=== PATIENT | male | born 1930 | race Caucasian/White ===

== ENCOUNTER 2018-01-16 10:22 | Inpatient (IN) | payer OTHER, BC, MEDICARE ==
[~2018-01-16] VITALS: Ht 185.4 cm; Wt 96.7 kg
[~2018-01-16 10:22] MED LIST: ALLOPURINOL300 M1 PO; AMLODIPINE BESYL5 M1 PO; ASPIRIN81 M4 PO; ATORVASTATIN CA40 M1 PO; AUGMENTIN 500-1 EACH PO; AUGMENTIN 875-1 EACH PO; BACTRIM DS TAB1 EACH PO; CLOPIDOGREL75 M1 PO; COLACE100 M1 PO; FIBER CHOICE1.5 GM PO; FISH OIL 1,0001 EACH PO; FOLIC ACID0.4 M1 PO; HYDROCHLOROTH12.5 M3 PO; KEFLEX500 M1 PO; LEVOTHYROXINE100 MC1 PO; LISINOPRIL5 M1 PO; METOPROLOL SUCC50 M2 PO; NITROGLYCERIN1 EACH TOP; PEPCID20 M1 PO; PRESERVISION A1 EACH PO; PROMETHAZINE HC25 M3 PO; PROTONIX20 M1 PO; RAMIPRIL10 M1 PO; RANITIDINE HCL75 MG PO; TAMSULOSIN HCL0.4 M1 PO; VITAMIN B-121000 MC3 PO; VITAMIN D32000 UNI1 PO
--- NOTE | 2018-01-16 10:35 | ED MVC/FALL/TRAUMA COMPLAINT ---
History of Present Illness General Chief Complaint: Fall Stated Complaint: S/P BIBA FRO TRIP AND FALL HEAD INJURY Source: patient Exam Limitations: no limitations Allergies Coded Allergies: No Known Allergies (06/11/16) Reconcile Medications Allopurinol 300 MG TABLET 0.5 TAB PO DAILY UNKNOWN (Reported) Amlodipine Besylate 2.5 MG TABLET 1 TAB PO DAILY HEART (Reported) Aspirin (Aspirin*) 81 MG TAB.CHEW 2 TAB PO DAILY HEART HEALTH (Reported) Atorvastatin Calcium 40 MG TABLET 1 TAB PO DAILY CHOLESTEROL (Reported) Cholecalciferol (Vitamin D3) (Vitamin D3) 2,000 UNIT TABLET 1 TAB PO DAILY VITAMIN SUPPORT (Reported) Clopidogrel Bisulfate (Clopidogrel) 75 MG TABLET 1 TAB PO DAILY BLOOD THINNER (Reported) Cyanocobalamin (Vitamin B-12) 1,000 MCG TABLET 1 TAB PO DAILY SUPPLEMENT ( Reported) Folic Acid 0.4 MG TABLET 1 TAB PO DAILY VITAMIN SUPPORT (Reported) Levothyroxine Sodium 100 MCG TABLET 1 TAB PO DAILY AC THYROID (Reported) Metoprolol Succinate 50 MG TAB.ER.24H 1 TAB PO BID HEART (Reported) Nitroglycerin (Nitroglycerin Patch) 0.4 MG/HOUR PATCH.TD24 1 PAT TOP DAILY HEART (Reported) Promethazine HCl 25 MG TABLET 1 TAB PO DAILY NAUSEA (Reported) Ranitidine HCl 75 MG TABLET 1 TAB PO DAILY GI (Reported) Tamsulosin HCl 0.4 MG CAP.ER.24H 1 CAP PO DAILY PROSTATE (Reported) Vit A/Vit C/Vit E/Zinc/Copper (Preservision Areds Tablet) 7,160-113 TABLET 1 TAB PO BID EYE (Reported) Triage Nurses Notes Reviewed? yes Onset: Abrupt Duration: minute(s):, constant, continues in ED Severity: moderate, severe Injuries/Fall Location: lower extremity Loss of Consciousness: no loss of consciousness HPI: 87-year-old male comes into the emergency room for further evaluation after falling at home. Patient reports that he was outside talking with his knees hurt and tripped with his dog came down on his right hip and hit his head. Denies any neck pain. Denies any rib pain or pain to his upper arms or hands. Pain to his right hip. (Sammy Angelo) Vital Signs & Intake/Output Vital Signs & Intake/Output Vital Signs Date Time Temp Pulse Resp B/P B/P Pulse O2 O2 Flow FiO2 Mean Ox Delivery Rate 01/16 1235 97.8 70 174/82 96 Room Air Room Air 01/16 1031 96.2 88 18 204/96 94 Room Air (Sherine SINGH,Abdi David) Past History Travel History Traveled to [place] past 21 day No Medical History Any Pertinent Medical History? 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 No (Sammy Angelo) Review of Systems Review of Systems Constitutional: Reports: no symptoms. Eyes: Reports: no symptoms. Ears, Nose, Throat, Mouth: Reports: no symptoms. Respiratory: Reports: no symptoms. Cardiovascular: Reports: no symptoms. Gastrointestinal/Abdominal: Reports: no symptoms. Genitourinary: Reports: no symptoms. Musculoskeletal: Reports: see HPI. Skin: Reports: no symptoms. Neurological/Psychological: Reports: see HPI. All Other Systems: Reviewed and Negative (Sammy Angelo) Physical Exam Physical Exam General Appearance: well developed/nourished, alert, awake, mild distress Head: swelling (RIGHT SCALP) Eyes: Bilateral: normal appearance, EOMI. Ears, Nose, Throat, Mouth: hearing grossly normal, moist mucous membrane Neck: normal inspection Respiratory: normal breath sounds, no respiratory distress Gastrointestinal: soft Back: normal inspection Extremities: full range of motion of right hip, Neurologic/Psych: awake, alert, oriented x 3 Skin: intact Core Measures ACS in differential dx? No CVA/TIA Diagnosis No Sepsis Present: No Sepsis Focused Exam Completed? No (Sammy Angelo) Progress Differential Diagnosis: abd injury, C/T/L spine injury, ext injury, ICH, pelvis injury, pnemothorax, spinal cord injury Diagnostic Imaging: Viewed by Me: CT Scan. Discussed w/RAD: CT Scan. Radiology Impression: PATIENT: MEET VAIL PRESENT AGE: 87 PATIENT ACCOUNT NO: [id number] : [birth year] LOCATION: ER ORDERING PHYSICIAN: Sammy GLYNN SERVICE DATE: 01/16/18 EXAM TYPE : CAT - CT PELVIS WO IV CONTRAST EXAMINATION: CT PELVIS WITHOUT CONTRAST CLINICAL INFORMATION: Sacral pain status post fall. Evaluate for sacral fracture. COMPARISON: CT abdomen and pelvis 07/20/2017. TECHNIQUE: Helical scanning was performed with submillimeter collimation through the pelvis. Sagittal and coronal multiplanar 2-D reconstructions were obtained. DLP: 935.53 mGy-cm FINDINGS: There are acute minimally displaced fractures of the right superior and inferior pubic rami. There is also a transversely oriented fracture involving the right ilium. The sacrum is intact and the left hemipelvis is intact. Findings are consistent with a type II lateral compression fracture based on the Young-Adams classification of pelvic fractures. There is mild soft tissue swelling associated with the iliac fractures. No overt retroperitoneal hematoma is visualized within the [id number] of this examination. A few diverticula are visualized within the descending colon and sigmoid. Chronic changes of an appendectomy. The visualized colon and small bowel are otherwise unremarkable. No layering fluid is visualized within the peritoneal cavity. The urinary bladder and prostate gland are unremarkable. IMPRESSION: Acute right-sided type II lateral compression fracture of the pelvis based on the Young-Adams classification of pelvic fracture. Mild associated soft tissue swelling surrounding the pubic rami fractures. No overt retroperitoneal hematoma. DICTATED BY: Chalino Salomon MD DATE/TIME DICTATED: 01/16/181234 PRODUCTION WELDING SUPERVISOR:VINI DATE/TIME TRANSCRIBED:01/16/181234 CONFIDENTIAL, DO NOT COPY WITHOUT APPROPRIATE AUTHORIZATION. <Electronically signed in Other Vendor System> SIGNED BY: Chalino Salomon MD 01/16/18 1247, PATIENT: MEET VAIL PRESENT AGE: 87 PATIENT ACCOUNT NO: [id number] : [birth year] LOCATION: ER ORDERING PHYSICIAN: Sammy GLYNN SERVICE DATE: 01/16/18 EXAM TYPE: CAT - CT HEAD WO IV CONTRAST EXAMINATION: CT HEAD WITHOUT CONTRAST CLINICAL INFORMATION: Fall. Hit head. On Plavix. COMPARISON: CT head 03/10/2008. TECHNIQUE: Contiguous axial imaging was performed from the skull base to vertex without intravenous administration of contrast. DLP: 622.39 mGy-cm FINDINGS: There is no acute intracranial hemorrhage or abnormal extra-axial collection. No intracranial mass effect or midline shift. Lateral and third ventricles are proportionate to the subarachnoid spaces. No hydrocephalus. Ill-defined foci of hypoattenuation are visualized within the periventricular white matter and there are a few small chronic lacunar infarcts for instance within the left caudate head. Grossly no evidence of acute territorial infarct. There is focal swelling of the right parietal scalp near the vertex. The calvarium and skull base are intact. Mastoid air cells and middle ear cavities are well-aerated. Visualized paranasal sinuses are well-aerated. IMPRESSION: Focal swelling of the right parietal scalp near the vertex. No evidence of acute intracranial hemorrhage. DICTATED BY: Chalino Salomon MD DATE/TIME DICTATED:01/16/181118 PRODUCTION WELDING SUPERVISOR:VINI DATE /TIME TRANSCRIBED:01/16/181118 CONFIDENTIAL, DO NOT COPY WITHOUT APPROPRIATE AUTHORIZATION. <Electronically signed in Other Vendor System> SIGNED BY: Chalino Salomon MD 01/16/18 1125 (Sammy Angelo) Plan of Care: Orders Procedure Date/time Status Heart Healthy Diet 01/16 D Active Saline Lock 01/16 1454 Active Pathway - chart 01/16 1454 Active House Staff 01/16 1454 Active Patient Data 01/16 1454 Active Vital Signs 01/16 1454 Active Code Status 01/16 1454 Active TYPE & SCREEN (NOT X-MATCH) 01/16 1454 Active Patient Data 01/16 1447 Active Misc Message 01/16 1445 Active ED Holding Orders 01/16 1445 Active Admit to inpatient 01/16 1445 Active Vital Signs 01/16 1445 Active Code Status 01/16 1445 Complete COMPREHENSIVE METABOLIC PANEL 01/16 1433 Complete CBC WITHOUT DIFFERENTIAL 01/16 1433 Complete EKG 01/16 1433 Active Intake & Output 01/16 1353 Active VTE Mechanical Prophylaxis 01/16 UNK Active Laboratory Tests 01/16/18 1504: Anion Gap 10, Estimated GFR 21 L, BUN/Creatinine Ratio 13.4, Glucose 99, Calcium 8.6, Total Bilirubin 0.7, AST 22, ALT 39, Alkaline Phosphatase 83, Total Protein 6.0 L, Albumin 3.3 L, Globulin 2.7, Albumin/Globulin Ratio 1.2, CBC w Diff NO MAN DIFF REQ, RBC 3.34 L, MCV 95.7 H, MCH 32.6 H, MCHC 34.1, RDW 14.2 , MPV 7.4, Gran % 79.8 H, Lymphocytes % 10.2 L, Monocytes % 7.4, Eosinophils % 2.2, Basophils % 0.4, Absolute Granulocytes 8.3 H, Absolute Lymphocytes 1.1 L, Absolute Monocytes 0.8 H, Absolute Eosinophils 0.2, Absolute Basophils 0 (Sherine SINGH,Abdi David) Departure Departure Disposition: STILL A PATIENT Condition: Stable Clinical Impression Primary Impression: Pelvic fracture Referrals: Stef Avila MD (PCP/Family) Departure Forms: Customer Survey General Discharge Information Admission Note Spoke With: Denton Torres MD Documentation of Exam: Documentation of any treatments & extenuating circumstances including Concerns Regarding Discharge (functional status, medication knowledge or non-compliance, living conditions, etc.) that warrant an admission rather than observation: Pain control. Physical therapy. Patient is not safe for discharge because he is unable to ambulate. Significant amount of pain. She will require physical therapy. Short-term rehabilitation. Orthopedic consultation. (Sammy Angelo) PA/TRANSPORTATION WORKER Co-Sign Statement Statement: ED Attending supervision documentation- [x] I saw and evaluated the patient. I have also reviewed all the pertinent lab results and diagnostic results. I agree with the findings and the plan of care as documented in the PA's/TRANSPORTATION WORKER's documentation. Patient presents for evaluation of injury sustained status post fall. Physical examination reveals pain and tenderness with range of motion of the right lower extremity (right lower extremity is neurovascularly intact). [] I have reviewed the ED Record and agree with the PA's/TRANSPORTATION WORKER's documentation. [] Additions or exceptions (if any) to the PAs/TRANSPORTATION WORKER's note and plan are summarized below: [] (Sherine SINGH,Abdi David) Critical Care Note Critical Care Note Critical Care Time: 30-74 min (35) (Sammy Angelo)
[2018-01-16] MEDS ORDERED: AMLODIPINE BES2.5 M1 PO (10:59)
--- NOTE | 2018-01-16 11:25 | CT SCAN REPORT ---
EXAMINATION: CT HEAD WITHOUT CONTRAST CLINICAL INFORMATION: Fall. Hit head. On Plavix. COMPARISON: CT head 03/10/2008. TECHNIQUE: Contiguous axial imaging was performed from the skull base to vertex without intravenous administration of contrast. DLP: 622.39 mGy-cm FINDINGS: There is no acute intracranial hemorrhage or abnormal extra-axial collection. No intracranial mass effect or midline shift. Lateral and third ventricles are proportionate to the subarachnoid spaces. No hydrocephalus. Ill-defined foci of hypoattenuation are visualized within the periventricular white matter and there are a few small chronic lacunar infarcts for instance within the left caudate head. Grossly no evidence of acute territorial infarct. There is focal swelling of the right parietal scalp near the vertex. The calvarium and skull base are intact. Mastoid air cells and middle ear cavities are well-aerated. Visualized paranasal sinuses are well-aerated. IMPRESSION: Focal swelling of the right parietal scalp near the vertex. No evidence of acute intracranial hemorrhage.
--- NOTE | 2018-01-16 11:56 | RADIOLOGY REPORT ---
EXAMINATION: CR PELVIS CR RIGHT HIP CR RIGHT HAND CLINICAL INFORMATION: Fall. Right hip and hand pain. COMPARISON: Pelvis film dated 02/13/2014. TECHNIQUE: AP view of the pelvis. 2 views of the right hip. 3 views of the right hand. FINDINGS: PELVIS AND RIGHT HIP: Evaluation of the pelvis is limited since the pubic rami are not included on the [id number]. The right pubic rami are included on the right hip films. There is a nondisplaced hairline fracture of the right iliac crest. In addition, there may be subtle nondisplaced fracture of the right superior and inferior pubic rami, possibly subacute given indistinctness of the fracture margins. There is some irregularity of the mid and lower sacrum seen bilaterally in region of the sacroiliac joints, findings may be related to prominent hypertrophic changes at the joints though subtle insufficiency fractures of the sacrum cannot be excluded. The mid and lower sacrum are otherwise obscured by overlying stool filled loops of bowel. The right hip joint is normally located within the acetabulum. No hip fracture is seen. Mild degenerative changes noted with superior joint space narrowing and acetabular roof sclerosis and spurring and cystic changes. Arteriovascular calcifications is seen in the groin. Several calcified nodular densities are seen in the pelvis, unchanged from prior studies, likely phleboliths. A staple is partially included in the left upper paraspinal location. Prominent vertebral endplate spurring is seen in the included lower lumbar spine. RIGHT HAND: There is diffuse osteopenia. No acute fracture or dislocation is seen. There is moderate degenerative change seen with joint space narrowing, spurring, cystic changes involving all the interphalangeal joints and the first carpometacarpal joint and the first and second metacarpophalangeal joints. Associated mild soft tissue swelling in all digits is noted at the PIP joint level. No joint calcifications are seen. IMPRESSION: 1. Diffuse osteopenia. This limits assessment. 2. Nondisplaced hairline fracture of the right iliac crest. 3. Right superior and inferior pubic rami fractures, possibly subacute given indistinctness of the fracture margins. Irregularities of the sacrum seen paralleling the sacroiliac joints, possibly related to degenerative change. However, subtle insufficiency fractures cannot be excluded. Further assessment with CT scan of the pelvis is recommended. 4. No acute fracture of the right hand. 5. Moderate degenerative changes throughout the right hand as discussed above.
--- NOTE | 2018-01-16 12:47 | CT SCAN REPORT ---
EXAMINATION: CT PELVIS WITHOUT CONTRAST CLINICAL INFORMATION: Sacral pain status post fall. Evaluate for sacral fracture. COMPARISON: CT abdomen and pelvis 07/20/2017. TECHNIQUE: Helical scanning was performed with submillimeter collimation through the pelvis. Sagittal and coronal multiplanar 2-D reconstructions were obtained. DLP: 935.53 mGy-cm FINDINGS: There are acute minimally displaced fractures of the right superior and inferior pubic rami. There is also a transversely oriented fracture involving the right ilium. The sacrum is intact and the left hemipelvis is intact. Findings are consistent with a type II lateral compression fracture based on the Young-Adams classification of pelvic fractures. There is mild soft tissue swelling associated with the iliac fractures. No overt retroperitoneal hematoma is visualized within the [id number] of this examination. A few diverticula are visualized within the descending colon and sigmoid. Chronic changes of an appendectomy. The visualized colon and small bowel are otherwise unremarkable. No layering fluid is visualized within the peritoneal cavity. The urinary bladder and prostate gland are unremarkable. IMPRESSION: Acute right-sided type II lateral compression fracture of the pelvis based on the Young-Adams classification of pelvic fracture. Mild associated soft tissue swelling surrounding the pubic rami fractures. No overt retroperitoneal hematoma.
--- NOTE | 2018-01-16 14:56 | History & Physical ---
Raymundo Parmar MD 01/16/18 5686: General Information and HPI MD Statement: I have seen and personally examined MEET VAIL and documented this H&P. The patient is a 87 year old M who presented with a patient stated chief complaint of fall. Source of Information: patient, old records Exam Limitations: no limitations History of Present Illness: 87 year old male with past medical history significant for hypertension, hyperlipidemia, severe aortic stenosis, b/l CEA, abdominal aortic aneurysm repair, hypothyroidism, BPH, GERD, and CKD stage IV presents after a mechanical fall. The patient was in his usual state of health and walking his dog outside when he turned to say goodbye to his nephew and the dog tried to run and tugged on the leash which he lost his balance and fell on his right side. He hit the right side of his head on a hitched trailer without loss of consciousness. The patient's life alert activated and EMS brought him to the hospital. The patient was unable to stand up due to right hip and leg pain. He was lifted off the ground to a seated position on the trailer. He also complains of some right hand pain and abrasions related to the fall. He denied any other symptoms, including exertional chest pain, dyspea, palpitations, syncope, or nausea. He was recently seen by Dr. Damico in the office for hypertension and aortic stenosis and was recently start on amlodipine 2.5mg po. His blood pressure had been approaching 200 systolic and had reportedly improved to 160-180. The patient monitors his blood pressure at home. In the ED, imaging revealed right superior and inferior pubic rami fractures and soft tissues injuries to the right parietal head and right hand. The patient's blood pressure was elevated to 200 and he was treated with 10mg of oral oxycodone. The patient was neurovascularly intact, but does report numbness and tingling in the right lower extremity. He was admitted to general medicine for management of right pelvic fractures. Allergies/Medications Allergies: Coded Allergies: No Known Allergies (06/11/16) Home Med list Allopurinol 300 MG TABLET 0.5 TAB PO DAILY UNKNOWN (Reported) Amlodipine Besylate 2.5 MG TABLET 1 TAB PO DAILY HEART (Reported) Aspirin (Aspirin*) 81 MG TAB.CHEW 2 TAB PO DAILY HEART HEALTH (Reported) Atorvastatin Calcium 40 MG TABLET 1 TAB PO DAILY CHOLESTEROL (Reported) Cholecalciferol (Vitamin D3) (Vitamin D3) 2,000 UNIT TABLET 1 TAB PO DAILY VITAMIN SUPPORT (Reported) Clopidogrel Bisulfate (Clopidogrel) 75 MG TABLET 1 TAB PO DAILY BLOOD THINNER (Reported) Cyanocobalamin (Vitamin B-12) 1,000 MCG TABLET 1 TAB PO DAILY SUPPLEMENT ( Reported) Folic Acid 0.4 MG TABLET 1 TAB PO DAILY VITAMIN SUPPORT (Reported) Levothyroxine Sodium 100 MCG TABLET 1 TAB PO DAILY AC THYROID (Reported) Metoprolol Succinate 50 MG TAB.ER.24H 1 TAB PO BID HEART (Reported) Nitroglycerin (Nitroglycerin Patch) 0.4 MG/HOUR PATCH.TD24 1 PAT TOP DAILY HEART (Reported) Promethazine HCl 25 MG TABLET 1 TAB PO DAILY NAUSEA (Reported) Ranitidine HCl 75 MG TABLET 1 TAB PO DAILY GI (Reported) Tamsulosin HCl 0.4 MG CAP.ER.24H 1 CAP PO DAILY PROSTATE (Reported) Vit A/Vit C/Vit E/Zinc/Copper (Preservision Areds Tablet) 7,160-113 TABLET 1 TAB PO BID EYE (Reported) Compliance With Home Meds: GOOD Past History Travel History Traveled to [place] past 21 day No Medical History Neurological: TIA EENT: hearing loss Cardiovascular: aortic aneurysm, hypertension, hyperlipidemia Respiratory: NONE Gastrointestinal: ACID REFLUX Hepatic: NONE Renal: benign prost hyperplasia, nephrolithiasis, RENAL INSUFFICIENCY Musculoskeletal: disk herniation Psychiatric: NONE Endocrine: hypothyroidism Blood Disorders: NONE Cancer(s): NONE 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 spouse Services at Home: None Primary Language: Mongolian Functional Ability ADLs Independent: dressing, eating, toileting, bathing. Ambulation: independent IADLs Independent: shopping, housework, finances, food prep, telephone, transportation , medication admin. Review of Systems Review of Systems Constitutional: Denies: chills, fever, malaise. EENTM: Denies: double vision, visual changes. Cardiovascular: Reports: peripheral edema. Denies: chest pain, orthopena, palpitations, syncope. Respiratory: Denies: cough, short of breath, sputum production. GI: Denies: abdominal pain, bloating, constipation, diarrhea, nausea, vomiting. Genitourinary: Denies: dysuria, frequency. Musculoskeletal: Reports: back pain, joint pain. Skin: Reports: see HPI. Neurological/Psychological: Reports: paresthesia, tingling. Denies: headache, weakness. Hematologic/Endocrine: Reports: no symptoms. Immunologic/Allergic: Reports: no symptoms. All Other Systems: Reviewed and Negative Exam & Diagnostic Data Last 24 Hrs of Vital Signs/I&O Vital Signs Date Time Temp Pulse Resp B/P B/P Pulse O2 O2 Flow FiO2 Mean Ox Delivery Rate 01/16 1235 97.8 70 174/82 96 Room Air Room Air 01/16 1031 96.2 88 18 204/96 94 Room Air Physical Exam General Appearance Alert, Oriented X3, Cooperative, No Acute Distress HEENT hematoma right parietal head Cardiovascular Regular Rate, Normal S1, Normal S2, 3/6 systolic murmur loudest at LSB Lungs Clear to Auscultation, Normal Air Movement Abdomen Normal Bowel Sounds, Soft, No Tenderness, No Masses Extremities No Clubbing, No Cyanosis, Normal Pulses, good peripheral pulses but ROM limited by pain, sensation intact, mild bilateral lower extremity edema, abrasions to the right hand and elbow Last 24 Hrs of Labs/Stephon: Laboratory Tests 01/16/18 1504: Anion Gap 10, Estimated GFR 21 L, BUN/Creatinine Ratio 13.4, Glucose 99, Calcium 8.6, Total Bilirubin 0.7, AST 22, ALT 39, Alkaline Phosphatase 83, Troponin I 0.02, Total Protein 6.0 L, Albumin 3.3 L, Globulin 2.7, Albumin/ Globulin Ratio 1.2, TSH 1.940, Free T4 1.37, CBC w Diff NO MAN DIFF REQ, RBC 3.34 L, MCV 95.7 H, MCH 32.6 H, MCHC 34.1, RDW 14.2, MPV 7.4, Gran % 79.8 H, Lymphocytes % 10.2 L, Monocytes % 7.4, Eosinophils % 2.2, Basophils % 0.4, Absolute Granulocytes 8.3 H, Absolute Lymphocytes 1.1 L, Absolute Monocytes 0.8 H, Absolute Eosinophils 0.2, Absolute Basophils 0 Diagnostic Data EKG Results sinus rhythm, LVH, minimal ST depressions V5-V6 Other Results Head CT w/o IV contrast There is no acute intracranial hemorrhage or abnormal extra-axial collection. No intracranial mass effect or midline shift. Lateral and third ventricles are proportionate to the subarachnoid spaces. No hydrocephalus. Ill-defined foci of hypoattenuation are visualized within the periventricular white matter and there are a few small chronic lacunar infarcts for instance within the left caudate head. Grossly no evidence of acute territorial infarct. There is focal swelling of the right parietal scalp near the vertex. The calvarium and skull base are intact. Mastoid air cells and middle ear cavities are well-aerated. Visualized paranasal sinuses are well-aerated. IMPRESSION: Focal swelling of the right parietal scalp near the vertex. No evidence of acute intracranial hemorrhage. Right hand and hip x-rays RIGHT HAND: There is diffuse osteopenia. No acute fracture or dislocation is seen. There is moderate degenerative change seen with joint space narrowing, spurring, cystic changes involving all the interphalangeal joints and the first carpometacarpal joint and the first and second metacarpophalangeal joints. Associated mild soft tissue swelling in all digits is noted at the PIP joint level. No joint calcifications are seen. IMPRESSION: 1. Diffuse osteopenia. This limits assessment. 2. Nondisplaced hairline fracture of the right iliac crest. 3. Right superior and inferior pubic rami fractures, possibly subacute given indistinctness of the fracture margins. Irregularities of the sacrum seen paralleling the sacroiliac joints, possibly related to degenerative change. However, subtle insufficiency fractures cannot be excluded. Further assessment with CT scan of the pelvis is recommended. 4. No acute fracture of the right hand. 5. Moderate degenerative changes throughout the right hand as discussed above. Pelvic CT There are acute minimally displaced fractures of the right superior and inferior pubic rami. There is also a transversely oriented fracture involving the right ilium. The sacrum is intact and the left hemipelvis is intact. Findings are consistent with a type II lateral compression fracture based on the Young-Adams classification of pelvic fractures. There is mild soft tissue swelling associated with the iliac fractures. No overt retroperitoneal hematoma is visualized within the [id number] of this examination. A few diverticula are visualized within the descending colon and sigmoid. Chronic changes of an appendectomy. The visualized colon and small bowel are otherwise unremarkable. No layering fluid is visualized within the peritoneal cavity. The urinary bladder and prostate gland are unremarkable. IMPRESSION: Acute right-sided type II lateral compression fracture of the pelvis based on the Young-Adams classification of pelvic fracture. Mild associated soft tissue swelling surrounding the pubic rami fractures. No overt retroperitoneal hematoma. Assessment/Plan Assessment: 87 year old male with past medical history significant for hypertension, hyperlipidemia, severa aortic stenosis, abdominal aortic aneurysm repair, hypothyroidism, BPH, GERD, and CKD stage IV presents after a mechanical fall with right sided pelvic fractures. Pelvic fractures: Secondary to mechanical fall, no suspicion for arrhythmia, not from syncope Pelvic CT There are acute minimally displaced fractures of the right superior and inferior pubic rami. There is also a transversely oriented fracture involving the right ilium. The sacrum is intact and the left hemipelvis is intact. Findings are consistent with a type II lateral compression fracture based on the Young-Adams classification of pelvic fractures. There is mild soft tissue swelling associated with the iliac fractures. No overt retroperitoneal hematoma is visualized within the [id number] of this examination. Type and screen, check CBC Analgesia-tylenol 1g IV q6h prn mild, moderate oxycodone 5mg, severe oxycodone 10mg Avoid NSAIDS because of CKD Orthopedics consultation with Dr. Kerr Conservative management with partial weight bearing PT evaluation after adequate analgesia Will likely require short term rehabilitation Hypertension, probable CAD, b/l CEA: Patient has significant hypertension BP ~200/90 Some of this may be pain related, but patient was also recently started on norvasc 2.5mg Continue norvasc 2.5, consider increasing to 5mg if no improvement with pain relief Some lateral ST depressions in v5-v6 and LVH, check repeat EKG and troponin x [address] Damico Obtain recent echocardiogram or repeat if none available, 3/6 murmur on physical exam Pt likely has CAD, given h/o AAA repair, b/l CEA, was scheduled for outpatient stress test Continue aspirin, plavix, metoprolol, atorvastatin, and nitropatch 0.4 Severe aortic stenosis: Avoid hypotension Echo 10/2017 severe ANDERS 0.8 mean gradient 43, mild LA dilatation, LVEF wnl, mild LVH Can increase norvasc to 5mg as needed Was previously on HCTZ/ACEi, stopped for orthostatic hypotension on prior admission Cardiology consulted CKD Stage IV: Stable, avoid nephrotoxic agents GERD: Continue ranitidine or PO PPI BPH: Continue flomax Hypothyroidism: Continue synthroid 100mcg daily Check TSHR History of nephrolithiasis: Continue allopurinol 150mg Continue home vitamin supplements, preservision not available Regular diet with 2g sodium restriction DVT ppx-mechanical ALPs today Given fracture and hematoma, plan to start sc heparin tomorrow if CBC stable and no bleeding DNR/DNI As Ranked By This Provider Problem List: 1. Pelvic fracture 2. Fall Core Measures/Misc (04/15) Acute Coronary Syndrome ACS Diagnosis: No Congestive Heart Failure Congestive Heart Failure Diagnosis No Cerebrovascular Accident CVA/TIA Diagnosis: No VTE (View Protocol) VTE Risk Factors Age>40 No Mechanical VTE Prophylaxis d/t N/A MechProphylax Ordered No VTE Pharm Prophylaxis d/t Medical Contraindication (bleeding risk on asa/ plavix) Comment: new fracture/hematoma Sepsis (View protocol) Sepsis Present: No If YES complete Sepsis Event Note If YES complete Sepsis Event Note Alejo Elias 01/16/18 1459: Core Measures/Misc (04/15) Sepsis (View protocol) If YES complete Sepsis Event Note If YES complete Sepsis Event Note Resident Review Statement Resident Statement: examined this patient, discussed with process engineering intern, agreed with process engineering intern Other Findings: This is a 87-year-old male with past medical history of hypertension, peripheral vascular disease, TIA status post with bilateral carotid endarterectomy, abdominal aortic aneurysm status post repair, nephrolithiasis on allopurinol, hyperlipidemia, hypercholesterolemia, BPH, chronic renal failure CKD stage IV, hypothyroidism on levothyroxine, came in was brought in by ambulance after a mechanical fall and hitting his head. Apparently the patient was doing all right when he was walking his dog outside and the dog took a different course, he tried to catch him when he lost his balance and fell on his right side, hitting his head on the trailer. He did not have any dizziness lightheadedness on any loss of consciousness, palpitations or any prodromal symptoms prior to the fall. He did not have any confusion after the fall and apparently this was purely a mechanical fall. His life alert activated and that is how he was brought into emergency department. He also had some abrasions on the right side of the hand. He also endorses a history of high blood pressure in the last 1 month prior to presentation. His blood pressure was approaching 200/100 after [address] he [address] Dr[address] Damico at its office, he was started on Norvasc 2.5 mg, however at home his measurements have been more close to 165 systolic in the last few days. His vitals on presentation were temperature of 97.8, pulse of 70, blood pressure of 204/96 on presentation, he was saturating 94% on room air. Physical exam he was alert oriented 3, not in any acute distress, however on moving his right side of the hip hurt. HEENT PERRLA, normocephalic, hematoma present on the right parietal area, approximately 1 cm in diameter. CVS S1-S2 present, pansystolic murmur grade 4 out of 6. RS air entry bilaterally equal, no adventitious sounds. Poor abdomen soft, nontender. Bilateral extremity, pulses palpable, no edema. Hip joint : Right hip joint tender on palpation, painful on moving, no bruising found, able to wiggle the toes of bilateral legs, however was not able to lift up the right hip due to pain, sensation mildly reduced bilaterally secondary to neuropathy. Hand x-ray, hip x-ray, pelvis x-ray and pelvis CT showed diffuse osteopenia, nondisplaced hairline fracture of the right iliac crest, right inferior and superior pubic rami fracture with irregularities of sacrum seen paralleling the sacroiliac joints and extensive degenerative disease, no acute fracture of the right hand, moderate degenerative changes throughout the right hand present. EKG showed NSR, Some lateral ST depressions in v5-v6 and LVH Cardiology consultation with Dr. Damico. Echo 10/2017 severe ANDERS 0.8 mean gradient 43, mild LA dilatation, LVEF wnl, mild LVH We will admit the patient to general medicine floor for treatment of hip fracture status post mechanical fall. Problem list along with assessment and plan problem #1 hip fracture -right superior and inferior pubic rami fractures with nondisplaced hairline fracture of the right iliac crest. superior and inferior pubic rami fractures will most likely be treated conservatively, continue pain management with IV Tylenol for mild to moderate pain and Percocet for severe pain. Continue fall precautions, ortho consult, PT/OT consult, partial weightbearing as per ortho, crossmatching type crossmatch and type, will likely require steroid replacement. #2 Moderate aortic stenosis. Follows up with Dr. Damico on the outpatient, as per history recent echocardiogram showed a valve area of 0.8 cm, cardio consult with Dr. Damico. #3 hypertension. Patient came in with blood pressure of 200-100, continue metoprolol and Norvasc 2.5 mg for high blood pressure, cardiac consult with Dr. Damico, if the blood pressure continues to be on the higher side, consider giving an additional 2.5 mg Norvasc one time. The high blood pressure seems to be most likely secondary to the pain however if it stays consistently high will need to adjust the medication upon discharge. #3 hyperlipidemia. Continue statin. #4 hypothyroidism. Continue levothyroxine 100 mcg daily, repeat TSH and T4. #5 BPH. Continue tamsulosin 0.4 mg daily. #6 history of carotid endarterectomy. Continue aspirin and Plavix at 81 and 75 mg respectively. #7. Nephrolithiasis. ct allopurinol 150 mg daily. #8 CKD-4 stable Avoid nehprotoxin Continue home medications of folic acid, vitamin B12 Full code. DVT prophylaxis with Alps. Heart healthy diet. Pain management with IV Tylenol and p.o. Percocet. Jojo SINGH,Krystal 01/16/18 1633: Core Measures/Misc (04/15) Sepsis (View protocol) If YES complete Sepsis Event Note If YES complete Sepsis Event Note Attending MD Review Statement Attending Statement Attending MD Statement: examined this patient, discuss w/resident/PA/ACCOUNT MANAGER RELIEF, agreed w/resident/PA/ACCOUNT MANAGER RELIEF, reviewed EMR data (avail), discussed with nursing, discussed with case mgmt, amended to note Attending Assessment/Plan: Patient is a pleasant 87yo male with hx of Aortic Stenosis, PAD, CKD Stage IV, HTN who presents to the emergency room folowing a mechanical fall. He is found to have ccute right-sided type II lateral compression fracture of the pelvis. He is conplaining of hip pain with movement and is having diffficulty ambulating. Examination findings are pertinent for small subutaneous hematoma on the right side of the vertex, and a 3/6 systolic murmur. There is no brusing over the right hip and distal pulses are palpable. His ROM of both hip are limited secondary to pain. Labs show chroinically elevated Cr at baseline. His is slightly more anemic compared to baseline. EKG was reported as atrial fluter but there are discernable p waves. There is non-specific lateral ST depressions. Patient denies any chest pain, palpitations at rest or with exertion. Plan. - Admit to the in-pt medical service - Pain manamnet with oxycodeone as needed. - Orthopedic evaluation for weight bearing status. PT consultation. - Repeat EKG. Cardiology consutation. - Continue amlodipine and metoprolol for blood pressure control. - DVT prophylaxis with compresion. May utilize Heparin if H/H remains stable. - Continue ASA/Plavix for now for his PAD.
[2018-01-16 15:16] LABS: ABSOLUTE BASOPHIL COUNT 0 /CUMM (0.0-0.2); ABSOLUTE EOSINOPHIL COUNT 0.2 /CUMM (0.0-0.7); ABSOLUTE GRANULOCYTE CT 8.3 /CUMM (1.4-6.5); ABSOLUTE LYMPH COUNT 1.1 /CUMM (1.2-3.4); ABSOLUTE MONOCYTE COUNT 0.8 /CUMM (0.10-0.60); BASOPHIL % 0.4 % (0.0-2.0); EOSINOPHIL % 2.2 % (0-5); GRANULOCYTE % 79.8 % (42.2-75.2); MEAN CORPUSCULAR HGB 32.6 PG (27.0-31.0); MEAN CORPUSCULAR HGB CONC 34.1 G/DL (33.0-37.0); MEAN CORPUSCULAR VOLUME 95.7 FL (80.0-94.0); MEAN PLATELET VOLUME 7.4 FL (7.4-10.4); PLATELET COUNT 114 /CUMM (130-400); RBC DISTRIBUTION WIDTH 14.2 % (11.5-14.5); RED BLOOD CELL CT 3.34 /CUMM (4.70-6.10); WHITE BLOOD CELL COUNT 10.4 /CUMM (4.8-10.8)
--- NOTE | 2018-01-16 16:32 | Admission Certification ---
Admission Certification Certification Statement - As attending physician, I certify that at the time of - admission, based on clinical presentation, severity of - symptoms, need for further diagnostic testing and - therapeutic interventions, and risk of adverse outcomes - without in-hospital treatment, in my clinical assessment, - this patient requires an acute hospital stay for a minimum - of two nights or longer. I have also considered psychsocial - factors such as support system, advanced age, financial - issues, cognitive issues, and failed out-patient treatments, - past re-admission history, safety of patient, and lack of - compliance as applicable. Specific rationale supporting this admission is: Hospitalization is required for pain control and physical therapy evaluation.
--- NOTE | 2018-01-16 16:55 | PN- Student ---
Subjective Subjective: Student H&P Source: Patient (nominal reliability) HPI: Samm was in his usual state of health until today when he fell from ground level. He was walking his dog and got pulled by the leash when the dog ran after something. He hit his head on a trailer and landed on his right side. He denied any prodromal symptoms such as dizziness, light-headedness, chest pain, SOB, or palpitations. He denied any loss of consciousness, and was able to pick himself up to a sitting position on the trailer. His life-alert was activated and he was transported to the ER by ambulance. He endorses pain where he hit his head, pain in his right hand, and pain in his right hip. He describes bilateral numbness in his legs up to mid-calf level which has been present for years. His medical history includes hypertension, and three weeks ago he was prescribed amlodipine. Home monitoring has shown an improvement in systolic pressures from the low 200' s to between 160-180 systolic. PMH: HTN, HLD, severe aortic stenosis, TIA, hypothyroidism, BPH, GERD, CKD stage 4, nephrolithiasis, macular degeneration (left) PSH: bilateral carotid endarterectomy, AAA repair, herniated disk repair, appendectomy Home Meds: Allopurinol Amlodipine Aspirin Atorvastatin Clopidogrel Levothyroxine Metoprolol Nitroglycerin Promethazine Ranitidine Tamsulosin Vit A/Vit C/Vit E/Zinc/Copper (Preservision Areds Tablet) Allergies: NKDA ROS: GENERAL: Denies fevers/chills, nightsweats, or weight changes. Endorses feeling cold all the time HEENT: Denies headaches or changes in vision. Endorses difficulty swallowing solids and sinus pressure CHEST: Denies palpitations. Endorses chest tightness and shortness of breath on exersion ABDOMEN: Denies pain, nausea/vomitting, or changes in bowel habits. Endorses acid reflux. UROLOGY: Denies pain/burning, blood, or urgency. Endorses incomplete emptying. MSK: Endorses numbness per HPI, stiffness in right hand, and severe pain and swelling in left thumb 2 months ago. FMH: Father - Alcoholism Mother - Liver cancer Brother - last year (unknown, neurological?) SH: Lives alone, visits his in [facility] 4 days per week. Drinks 1 beer per week. Denies tobacco use. Denies illicit drug use. Objective Objective: On physical exam, the patient is resting comfotably in NAD. He is alert and oriented and speaking in full sentances. His skin is PWD. Cardiovascular: Heart has a regular rate with a grade IV/ holosystolic murmur heard best at the left sternal border 4th intercostal space. No lifts, heaves, or thrills; PMI not palpable. Radial pulses are equal and bounding. Pedal pulses are equal bilaterally. There is trace pedal edema. No JVD. Pulmonary: Lungs are clear to auscultation bilaterally. Neurological: Cranial nerves 2-12 are intact. Upper extremity strength is 4/5 on the right and 5/5 on the left. Biceps reflex is 1+ on the right and 2+ on the left. Flexion and extension of the foot and halus is 5/5 bilaterally. Unable to assess other muscle groups due to pain. Sensation is intact except numbness from his feet to his midcalf. Extremities: Multiple small wounds and swelling on right hand. Hematoma on top right scalp. No bruising or deformity on the right hip. EKG Results sinus rhythm, LVH, minimal ST depressions V5-V6 Other Results Head CT w/o IV contrast IMPRESSION: Focal swelling of the right parietal scalp near the vertex. No evidence of acute intracranial hemorrhage. Right hand and hip x-rays IMPRESSION: 1. Diffuse osteopenia. This limits assessment. 2. Nondisplaced hairline fracture of the right iliac crest. 3. Right superior and inferior pubic rami fractures, possibly subacute given indistinctness of the fracture margins. Irregularities of the sacrum seen paralleling the sacroiliac joints, possibly related to degenerative change. However, subtle insufficiency fractures cannot be excluded. Further assessment with CT scan of the pelvis is recommended. 4. No acute fracture of the right hand. 5. Moderate degenerative changes throughout the right hand as discussed above. Pelvic CT IMPRESSION: Acute right-sided type II lateral compression fracture of the pelvis based on the Young-Adams classification of pelvic fracture. Mild associated soft tissue swelling surrounding the pubic rami fractures. No overt retroperitoneal hematoma. Laboratory Tests 01/16 1504 Chemistry Sodium (137 - 145 mmol/L) 142 Potassium (3.5 - 5.1 mmol/L) 4.2 Chloride (98 - 107 mmol/L) 110 H Carbon Dioxide (22 - 30 mmol/L) 22 Anion Gap (5 - 16) 10 BUN (9 - 20 mg/dL) 39 H Creatinine (0.7 - 1.2 mg/dL) 2.9 H Estimated GFR (>60 ml/min) 21 L BUN/Creatinine Ratio (7 - 25 %) 13.4 Glucose (65 - 99 mg/dL) 99 Calcium (8.4 - 10.2 mg/dL) 8.6 Total Bilirubin (0.2 - 1.3 mg/dL) 0.7 AST (17 - 59 U/L) 22 ALT (21 - 72 U/L) 39 Alkaline Phosphatase (< 127 U/L) 83 Troponin I (<0.11 ng/ml) 0.02 Total Protein (6.3 - 8.2 g/dL) 6.0 L Albumin (3.5 - 5.0 g/dL) 3.3 L Globulin (1.9 - 4.2 gm/dL) 2.7 Albumin/Globulin Ratio (1.1 - 2.2 %) 1.2 TSH (0.270 - 4.200 uIU/mL) 1.940 Free T4 (0.85 - 1.93 ng/dL) 1.37 Hematology CBC w Diff NO MAN DIFF REQ WBC (4.8 - 10.8 /CUMM) 10.4 RBC (4.70 - 6.10 /CUMM) 3.34 L Hgb (14.0 - 18.0 G/DL) 10.9 L Hct (42 - 52 %) 32.0 L MCV (80.0 - 94.0 FL) 95.7 H MCH (27.0 - 31.0 PG) 32.6 H MCHC (33.0 - 37.0 G/DL) 34.1 RDW (11.5 - 14.5 %) 14.2 Plt Count (130 - 400 /CUMM) 114 L MPV (7.4 - 10.4 FL) 7.4 Gran % (42.2 - 75.2 %) 79.8 H Lymphocytes % (20.5 - 51.1 %) 10.2 L Monocytes % (1.7 - 9.3 %) 7.4 Eosinophils % (0 - 5 %) 2.2 Basophils % (0.0 - 2.0 %) 0.4 Absolute Granulocytes (1.4 - 6.5 /CUMM) 8.3 H Absolute Lymphocytes (1.2 - 3.4 /CUMM) 1.1 L Absolute Monocytes (0.10 - 0.60 /CUMM) 0.8 H Absolute Eosinophils (0.0 - 0.7 /CUMM) 0.2 Absolute Basophils (0.0 - 0.2 /CUMM) 0 Vital Signs Date Time Temp Pulse Resp B/P B/P Pulse O2 O2 Flow FiO2 Mean Ox Delivery Rate 01/16 1645 98.1 72 18 181/84 96 Room Air 01/16 1235 97.8 70 174/82 96 Room Air Room Air 01/16 1031 96.2 88 18 204/96 94 Room Air Assessment/Plan Assessment: 87 YOM with a PMH of HTN, HLD, severe aortic stenosis, AAA repair, hypothyroidism, BPH, GERD, and CKD stage IV presents after a mechanical fall with right sided pelvic fractures. Problem 1: non-displaced hip fractures; hemodynamically stable patient. - Pain control with Oxycodone and Tylenol, avoid NSAIDS - Partial weight bearing - PT evaluation - Orthopedics consult Problem 2: Hypertensive urgency - Continue Norvasc and Lopressor - Ensure adequate analgesia - If pressure remains elevated, consider increasing amlodipine dose and - Investigate secondary HTN causes Problem 3: Heart murmur, exertional chest pain/dyspnea, non-specific EKG changes - Cardiology consult - Serial troponins and EKGs - Review recent cardiology records - Continue ASA/Plavix Otherwise continue home meds DVT prophylaxis - ALPs only until hemostasis in ensured. Diet: Full
--- NOTE | 2018-01-16 17:05 | Cons- Cardiology ---
General Information and HPI Consulting Request Date of Consult: 01/16/18 Requested By: Krystal Uribe MD Reason for Consult: mechanical fall; abnormal ECG Source of Information: patient, old records Exam Limitations: no limitations History of Present Illness: The patient is an 87 year old male, well known to me, with past medical history significant for hypertension, hyperlipidemia, severe aortic stenosis, b/l CEA, abdominal aortic aneurysm repair, hypothyroidism, BPH, GERD, and CKD stage IV presents after a mechanical fall. The patient was in his usual state of health and walking his dog outside when he turned to say goodbye to his nephew and the dog tried to run and tugged on the leash which he lost his balance and fell on his right side. He hit the right side of his head on a hitched trailer without loss of consciousness. The patient's life alert activated and EMS brought him to the hospital. The patient was unable to stand up due to right hip and leg pain. He was recently seen by me in the office for hypertension and aortic stenosis and was recently start on amlodipine 2.5mg po. In the past, the patient's BP meds had been held due to worsening positional hypotension. The patient denies any other CV symptoms at the present time. Allergies/Medications Allergies: Coded Allergies: No Known Allergies (06/11/16) Home Med List: Allopurinol 300 MG TABLET 0.5 TAB PO DAILY UNKNOWN (Reported) Amlodipine Besylate 2.5 MG TABLET 1 TAB PO DAILY HEART (Reported) Aspirin (Aspirin*) 81 MG TAB.CHEW 2 TAB PO DAILY HEART HEALTH (Reported) Atorvastatin Calcium 40 MG TABLET 1 TAB PO DAILY CHOLESTEROL (Reported) Cholecalciferol (Vitamin D3) (Vitamin D3) 2,000 UNIT TABLET 1 TAB PO DAILY VITAMIN SUPPORT (Reported) Clopidogrel Bisulfate (Clopidogrel) 75 MG TABLET 1 TAB PO DAILY BLOOD THINNER (Reported) Cyanocobalamin (Vitamin B-12) 1,000 MCG TABLET 1 TAB PO DAILY SUPPLEMENT ( Reported) Folic Acid 0.4 MG TABLET 1 TAB PO DAILY VITAMIN SUPPORT (Reported) Levothyroxine Sodium 100 MCG TABLET 1 TAB PO DAILY AC THYROID (Reported) Metoprolol Succinate 50 MG TAB.ER.24H 1 TAB PO BID HEART (Reported) Nitroglycerin (Nitroglycerin Patch) 0.4 MG/HOUR PATCH.TD24 1 PAT TOP DAILY HEART (Reported) Promethazine HCl 25 MG TABLET 1 TAB PO DAILY NAUSEA (Reported) Ranitidine HCl 75 MG TABLET 1 TAB PO DAILY GI (Reported) Tamsulosin HCl 0.4 MG CAP.ER.24H 1 CAP PO DAILY PROSTATE (Reported) Vit A/Vit C/Vit E/Zinc/Copper (Preservision Areds Tablet) 7,160-113 TABLET 1 TAB PO BID EYE (Reported) Current Medications: Current Medications Sig/Wilfredo Start time Last Medication Dose Route Stop Time Status Admin Acetaminophen 1,000 MG Q6P PRN 01/16 1600 UNVr N/A 1 UNIT IV Allopurinol 150 MG DAILY 01/17 09 UNVr PO Amlodipine Besylate 2.5 MG DAILY 01/16 1610 UNVr PO Aspirin 162 MG DAILY 01/17 09 UNVr PO Atorvastatin Calcium 40 MG 1700 01/17 1700 AC PO Cholecalciferol 2,000 IU ONCE ONE 01/16 1615 DC PO 01/16 1616 Clopidogrel Bisulfate 75 MG DAILY 01/17 09 AC PO Cyanocobalamin 1,000 MCG DAILY 01/17 0900 AC PO Famotidine 75 MG DAILY AC 01/17 0700 UNVr PO Folic Acid 0.4 MG DAILY 01/17 09 UNVr PO Levothyroxine Sodium 0.1 MG DAILY AC 01/17 0700 AC PO Metoprolol Succinate 50 MG BID 01/16 2100 AC PO Nitroglycerin 0.4 MG DAILY 01/17 0900 AC TOP Oxycodone HCl 10 MG ONCE ONE 01/16 1500 DC 01/16 PO 01/16 1501 1517 Oxycodone HCl 0 .STK-MED ONE 01/16 1459 DC PO Oxycodone/ 1 TAB Q6P PRN 01/16 1600 AC Acetaminophen PO Promethazine HCl 25 MG DAILY 01/17 0900 AC PO 01/24 0859 Tamsulosin HCl 0.4 MG DAILY 01/17 0900 AC PO Past History Travel History Traveled to [place] past 21 day No Medical History Neurological: TIA EENT: hearing loss Cardiovascular: aortic aneurysm, hypertension, hyperlipidemia Respiratory: NONE Gastrointestinal: ACID REFLUX Hepatic: NONE Renal: benign prost hyperplasia, nephrolithiasis, RENAL INSUFFICIENCY Musculoskeletal: disk herniation Psychiatric: NONE Endocrine: hypothyroidism Blood Disorders: NONE Cancer(s): 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 spouse Services at Home: None Primary Language: Uzbek Functional Ability ADLs Independent: dressing, eating, toileting, bathing. Ambulation: independent IADLs Independent: shopping, housework, finances, food prep, telephone, transportation , medication admin. Exam & Diagnostic Data Vital Signs and I&O Vital Signs Date Time Temp Pulse Resp B/P B/P Pulse O2 O2 Flow FiO2 Mean Ox Delivery Rate 01/16 1645 98.1 72 18 181/84 96 Room Air 01/16 1235 97.8 70 174/82 96 Room Air Room Air 01/16 1031 96.2 88 18 204/96 94 Room Air Physical Exam: General Appearance Alert, Oriented X3, Cooperative, No Acute Distress HEENT hematoma right parietal head Cardiovascular Regular Rate, Normal S1, Normal S2, 3/6 systolic murmur loudest at LSB Lungs Clear to Auscultation, Normal Air Movement Abdomen Normal Bowel Sounds, Soft, No Tenderness, No Masses Extremities No Clubbing, No Cyanosis, Normal Pulses, good peripheral pulses but ROM limited by pain, sensation intact, mild bilateral lower extremity edema, abrasions to the right hand and elbow Labs/Stephon Results: Laboratory Tests 01/16 1504 Chemistry Sodium (137 - 145 mmol/L) 142 Potassium (3.5 - 5.1 mmol/L) 4.2 Chloride (98 - 107 mmol/L) 110 H Carbon Dioxide (22 - 30 mmol/L) 22 Anion Gap (5 - 16) 10 BUN (9 - 20 mg/dL) 39 H Creatinine (0.7 - 1.2 mg/dL) 2.9 H Estimated GFR (>60 ml/min) 21 L BUN/Creatinine Ratio (7 - 25 %) 13.4 Glucose (65 - 99 mg/dL) 99 Calcium (8.4 - 10.2 mg/dL) 8.6 Total Bilirubin (0.2 - 1.3 mg/dL) 0.7 AST (17 - 59 U/L) 22 ALT (21 - 72 U/L) 39 Alkaline Phosphatase (< 127 U/L) 83 Troponin I (<0.11 ng/ml) 0.02 Total Protein (6.3 - 8.2 g/dL) 6.0 L Albumin (3.5 - 5.0 g/dL) 3.3 L Globulin (1.9 - 4.2 gm/dL) 2.7 Albumin/Globulin Ratio (1.1 - 2.2 %) 1.2 TSH (0.270 - 4.200 uIU/mL) Pending Free T4 (0.85 - 1.93 ng/dL) Pending Hematology CBC w Diff NO MAN DIFF REQ WBC (4.8 - 10.8 /CUMM) 10.4 RBC (4.70 - 6.10 /CUMM) 3.34 L Hgb (14.0 - 18.0 G/DL) 10.9 L Hct (42 - 52 %) 32.0 L MCV (80.0 - 94.0 FL) 95.7 H MCH (27.0 - 31.0 PG) 32.6 H MCHC (33.0 - 37.0 G/DL) 34.1 RDW (11.5 - 14.5 %) 14.2 Plt Count (130 - 400 /CUMM) 114 L MPV (7.4 - 10.4 FL) 7.4 Gran % (42.2 - 75.2 %) 79.8 H Lymphocytes % (20.5 - 51.1 %) 10.2 L Monocytes % (1.7 - 9.3 %) 7.4 Eosinophils % (0 - 5 %) 2.2 Basophils % (0.0 - 2.0 %) 0.4 Absolute Granulocytes (1.4 - 6.5 /CUMM) 8.3 H Absolute Lymphocytes (1.2 - 3.4 /CUMM) 1.1 L Absolute Monocytes (0.10 - 0.60 /CUMM) 0.8 H Absolute Eosinophils (0.0 - 0.7 /CUMM) 0.2 Absolute Basophils (0.0 - 0.2 /CUMM) 0 Diagnostic Data EKG Results NSR; LVH; non specific STT changes Other Results Pelvic CT: IMPRESSION: Acute right-sided type II lateral compression fracture of the pelvis based on the Young-Adams classification of pelvic fracture. Mild associated soft tissue swelling surrounding the pubic rami fractures. No overt retroperitoneal hematoma. Assessment/Plan Assessment/Plan Assessment: 1. Pelvic / Pubic ramus fracture post mechanical fall. 2. Moderate aortic stenosis. 3. Abnormal ECG 4. History of PAD with 70% left SFA stenosis 5. Mild bilateral carotid plaque status post bilateral CEA 6. History of AAA repair with residual small AAA 7. History of CAD Recommendations: -Continue current management as per the medical team -IF BP remains elevated, consider increasing amlodipine to 5 cantrell with close monitoring of orthostatic BPs if possible. - NO need for any other cardiac testing at the present time Consult Acknowledgment - Thank you for your consult request.
[2018-01-16 18:00] VITALS: BP 154/70
[2018-01-16 22:10] VITALS: BP 140/80
[2018-01-17 06:00] VITALS: BP 160/66
[2018-01-17 08:30] LABS: ABSOLUTE BASOPHIL COUNT 0 /CUMM (0.0-0.2); ABSOLUTE EOSINOPHIL COUNT 0.2 /CUMM (0.0-0.7); ABSOLUTE LYMPH COUNT 0.9 /CUMM (1.2-3.4); BASOPHIL % 0.6 % (0.0-2.0); EOSINOPHIL % 2.6 % (0-5); GRANULOCYTE % 73.9 % (42.2-75.2); HEMATOCRIT 30.4 % (42-52); MEAN CORPUSCULAR HGB 33.4 PG (27.0-31.0); MEAN CORPUSCULAR VOLUME 98.2 FL (80.0-94.0); RBC DISTRIBUTION WIDTH 13.9 % (11.5-14.5); RED BLOOD CELL CT 3.09 /CUMM (4.70-6.10); WHITE BLOOD CELL COUNT 8.1 /CUMM (4.8-10.8)
--- NOTE | 2018-01-17 08:39 | PN- Housestaff ---
See Addendum Subjective Follow-up For: fall pelvic fractures right hand injury Subjective: patient states his right hand hurts worse than his hip this morning no overnight events received another 2.5mg of amlodipine overnight for HTN Review of Systems Constitutional: Reports: see HPI. Objective Last 24 Hrs of Vital Signs/I&O Vital Signs Date Time Temp Pulse Resp B/P B/P Pulse O2 O2 Flow FiO2 Mean Ox Delivery Rate 01/17 0600 98.6 65 20 160/66 93 Room Air 01/17 0000 Room Air 01/16 2210 98.0 62 20 140/80 95 Room Air 01/16 2104 62 140/80 01/16 1800 97.6 68 18 154/70 94 01/16 1645 98.1 72 18 181/84 96 Room Air 01/16 1235 97.8 70 174/82 96 Room Air Room Air Intake & Output 01/17 1600 01/17 0800 01/17 0000 Intake Total 240 300 Output Total 200 580 Balance 40 -280 Intake, Oral 240 300 Number 0 Bowel Movements Output, Urine 200 580 Patient 93.497 kg 90.718 kg Weight Weight Bed scale Reported by Patient Measurement Method Physical Exam General Appearance: Alert, Oriented X3, Cooperative, No Acute Distress HEENT: right parietal hematoma Cardiovascular: Regular Rate, Normal S1, Normal S2, 3/6 systolic murmur Lungs: Clear to Auscultation, Normal Air Movement Abdomen: Normal Bowel Sounds, Soft, No Tenderness, No Masses Extremities: b/l LE ROM limited by pain, right hand and thumb swelling worsened with limited ROM Current Medications: Current Medications Sig/Wilfredo Start time Last Medication Dose Route Stop Time Status Admin Acetaminophen 1,000 MG Q6P PRN 01/16 1600 AC N/A 1 UNIT IV 01/17 1559 Allopurinol 150 MG DAILY 01/17 0900 AC 01/17 PO 1138 Amlodipine Besylate 2.5 MG DAILY 01/16 1610 AC 01/17 PO 0953 Aspirin 162 MG DAILY 01/17 0900 AC 01/17 PO 1137 Atorvastatin Calcium 40 MG 1700 01/17 1700 AC PO Cholecalciferol 2,000 IU ONCE ONE 01/16 1615 DC 01/16 PO 01/16 1616 2131 Clopidogrel Bisulfate 75 MG DAILY 01/17 09 AC 01/17 PO 0953 Cyanocobalamin 1,000 MCG DAILY 01/17 0900 AC 01/17 PO 1137 Famotidine 20 MG DAILY AC 01/17 0700 AC 01/17 PO 0632 Folic Acid 1 MG DAILY 01/17 0900 AC 01/17 PO 0954 Levothyroxine Sodium 0.1 MG DAILY AC 01/17 0700 AC 01/17 PO 0632 Metoprolol Succinate 50 MG BID 01/16 2100 AC 01/17 PO 0953 Nitroglycerin 0.4 MG DAILY 01/17 09 AC 01/17 TOP 0956 Non-Formulary 0 SEE ADMIN CRITERIA 01/17 1030 CAN Medication ANY Oxycodone HCl 10 MG ONCE ONE 01/16 1500 DC 01/16 PO 01/16 1501 1517 Oxycodone HCl 0 .STK-MED ONE 01/16 1459 DC PO Oxycodone/ 1 TAB Q6P PRN 01/16 1600 AC 01/17 Acetaminophen PO 0152 Promethazine HCl 25 MG DAILY 01/17 09 AC 01/17 PO 01/24 0859 1137 Tamsulosin HCl 0.4 MG DAILY 01/17 09 AC 01/17 PO 0953 Last 24 Hrs of Lab/Stephon Results Last 24 Hrs of Labs/Mics: Laboratory Tests 01/17/18 0708: Anion Gap 11, Estimated GFR 21 L, BUN/Creatinine Ratio 13.8, Magnesium 1.8, Troponin I 0.02, CBC w Diff NO MAN DIFF REQ, RBC 3.09 L, MCV 98.2 H, MCH 33.4 H, MCHC 34.0, RDW 13.9, MPV 8.0, Gran % 73.9, Lymphocytes % 10.8 L, Monocytes % 12.1 H, Eosinophils % 2.6, Basophils % 0.6, Absolute Granulocytes 6.0, Absolute Lymphocytes 0.9 L, Absolute Monocytes 1.0 H, Absolute Eosinophils 0.2, Absolute Basophils 0 01/16/18 1504: Anion Gap 10, Estimated GFR 21 L, BUN/Creatinine Ratio 13.4, Glucose 99, Calcium 8.6, Total Bilirubin 0.7, AST 22, ALT 39, Alkaline Phosphatase 83, Troponin I 0.02, Total Protein 6.0 L, Albumin 3.3 L, Globulin 2.7, Albumin/ Globulin Ratio 1.2, TSH 1.940, Free T4 1.37, CBC w Diff NO MAN DIFF REQ, RBC 3.34 L, MCV 95.7 H, MCH 32.6 H, MCHC 34.1, RDW 14.2, MPV 7.4, Gran % 79.8 H, Lymphocytes % 10.2 L, Monocytes % 7.4, Eosinophils % 2.2, Basophils % 0.4, Absolute Granulocytes 8.3 H, Absolute Lymphocytes 1.1 L, Absolute Monocytes 0.8 H, Absolute Eosinophils 0.2, Absolute Basophils 0 Microbiology 01/17 0356 URINE ROUT: Urine Culture - COLB Assessment/Plan Assessment: 87 year old male with past medical history significant for hypertension, hyperlipidemia, severa aortic stenosis, abdominal aortic aneurysm repair, hypothyroidism, BPH, GERD, and CKD stage IV presents after a mechanical fall with right sided pelvic fractures. Pelvic fractures: Analgesia-tylenol 1g IV q6h prn mild, moderate oxycodone 5mg, severe oxycodone 10mg Avoid NSAIDS because of CKD Orthopedics consultation with Dr. Kerr Weight bearing as tolerating Physical therapy Will likely require short term rehabilitation Right wrist [id number] for cortical avulsion radial aspect trapezium Discuss with orthopedics, the need for splinting and immobilization Hypertension: Continue norvasc 2.5, can increased to 5mg if needed Cardiology consultation with Dr. Damico Continue aspirin, plavix, metoprolol, atorvastatin, and nitropatch 0.4 Severe aortic stenosis: Avoid hypotension Echo 10/2017 severe ANDERS 0.8 mean gradient 43, mild LA dilatation, LVEF wnl, mild LVH Was previously on HCTZ/ACEi, stopped for orthostatic hypotension on prior admission CKD Stage IV: Stable, avoid nephrotoxic agents GERD: Continue ranitidine or PO PPI BPH: Continue flomax Hypothyroidism: Continue synthroid 100mcg daily History of nephrolithiasis: Continue allopurinol 150mg Regular diet with 2g sodium restriction DVT ppx-mechanical ALPs today DNR/DNI Problem List: 1. Fall 2. Pelvic fracture Pain Ratin Pain Location: right hand and hip Pain Goal: Pain 4 or less Pain Plan: prn Tomorrow's Labs & Rationales: none
[2018-01-17 09:20] LABS: PLATELET COUNT 103 /CUMM (130-400)
--- NOTE | 2018-01-17 09:47 | Cons- Orthopedic ---
See Addendum General Information and HPI Consulting Request Date of Consult: 01/17/18 Requested By: Krystal Uribe MD History of Present Illness: 87-year-old male with a mechanical fall on the right side. He presented to the [facility] emergency room with right hip pain. X-rays were taken as well as a CAT scan showing iliac crest fracture as well as a right superior inferior pubic rami fracture. Patient was admitted for difficulty with ambulation and pain control. We were consult for weight-bearing status. Allergies/Medications Allergies: Coded Allergies: No Known Allergies (06/11/16) Home Med List: Allopurinol 300 MG TABLET 0.5 TAB PO DAILY UNKNOWN (Reported) Amlodipine Besylate 2.5 MG TABLET 1 TAB PO DAILY HEART (Reported) Aspirin (Aspirin*) 81 MG TAB.CHEW 2 TAB PO DAILY HEART HEALTH (Reported) Atorvastatin Calcium 40 MG TABLET 1 TAB PO DAILY CHOLESTEROL (Reported) Cholecalciferol (Vitamin D3) (Vitamin D3) 2,000 UNIT TABLET 1 TAB PO DAILY VITAMIN SUPPORT (Reported) Clopidogrel Bisulfate (Clopidogrel) 75 MG TABLET 1 TAB PO DAILY BLOOD THINNER (Reported) Cyanocobalamin (Vitamin B-12) 1,000 MCG TABLET 1 TAB PO DAILY SUPPLEMENT ( Reported) Folic Acid 0.4 MG TABLET 1 TAB PO DAILY VITAMIN SUPPORT (Reported) Levothyroxine Sodium 100 MCG TABLET 1 TAB PO DAILY AC THYROID (Reported) Metoprolol Succinate 50 MG TAB.ER.24H 1 TAB PO BID HEART (Reported) Nitroglycerin (Nitroglycerin Patch) 0.4 MG/HOUR PATCH.TD24 1 PAT TOP DAILY HEART (Reported) Promethazine HCl 25 MG TABLET 1 TAB PO DAILY NAUSEA (Reported) Ranitidine HCl 75 MG TABLET 1 TAB PO DAILY GI (Reported) Tamsulosin HCl 0.4 MG CAP.ER.24H 1 CAP PO DAILY PROSTATE (Reported) Vit A/Vit C/Vit E/Zinc/Copper (Preservision Areds Tablet) 7,160-113 TABLET 1 TAB PO BID EYE (Reported) Past History Medical History Blood Transfusion Hx: No Neurological: TIA EENT: hearing loss Cardiovascular: aortic aneurysm, hypertension, hyperlipidemia Respiratory: NONE Gastrointestinal: ACID REFLUX Hepatic: NONE Renal: benign prost hyperplasia, nephrolithiasis, RENAL INSUFFICIENCY Musculoskeletal: disk herniation, PELVIC FRACTURE Psychiatric: NONE Endocrine: hypothyroidism Blood Disorders: NONE Cancer(s): NONE 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 Home Who Do You Live With? spouse Services at Home: None Primary Language: Swedish Smoking Status: Former Smoker Functional Ability ADLs Independent: dressing, eating, toileting, bathing. Ambulation: independent IADLs Independent: shopping, housework, finances, food prep, telephone, transportation , medication admin. Exam & Diagnostic Data Vital Signs and I&O Vital Signs Date Time Temp Pulse Resp B/P B/P Pulse O2 O2 Flow FiO2 Mean Ox Delivery Rate 01/17 0600 98.6 65 20 160/66 93 Room Air 01/17 0000 Room Air 01/16 2210 98.0 62 20 140/80 95 Room Air 01/16 2104 62 140/80 01/16 1800 97.6 68 18 154/70 94 01/16 1645 98.1 72 18 181/84 96 Room Air 01/16 1235 97.8 70 174/82 96 Room Air Room Air 01/16 1031 96.2 88 18 204/96 94 Room Air Intake & Output 01/17 1600 01/17 0800 01/17 0000 01/16 1600 01/16 0800 01/16 0000 Intake Total 240 300 Output Total 200 580 Balance 40 -280 Intake, Oral 240 300 Number 0 Bowel Movements Output, Urine 200 580 Patient 206 lb 200 lb Weight Weight Bed scale Reported by Patient Measurement Method Physical Exam: On physical exam he is tender with internal and external rotation. The right lower extremity is neurovascularly intact. Tenderness in the right inguinal region as well as the right iliac crest region. Skin is intact. X-rays and CT scan were reviewed showing iliac crest fracture nondisplaced as well as a superior and inferior right pubic rami fractures. Assessment/Plan Assessment/Plan Right iliac crest fracture with superior and inferior pubic rami fractures. Acetabulum is spared no acetabular fractures are identified. -Weightbearing as tolerated with a walker. -Pain medication for pain control -Follow up in our office in 6 weeks for x-rays AP pelvis Consult Acknowledgment - Thank you for your consult request.
--- NOTE | 2018-01-17 10:11 | Discharge Summary ---
Visit Information Visit Dates Admission Date: 01/16/18 Discharge Date: 01.21.2018 Hospital Course Course Attending Physician: Krystal Uribe MD Primary Care Physician: Stef Avila MD Hospital Course: This is 87-year-old male with past medical history of hypertension, hyperlipidemia, severe aortic stenosis, bilateral carotid endarterectomy, abdominal aortic aneurysm repair, hypothyroidism, BPH, GERD, CKD stage IV who presented to [place] emergency department on 01/16/2018 after sustaining a mechanical fall while walking his dog outside, trying to run and losing his balance falling on his right side hitting the right side of his head on a hitched trailer. His fall activated life alert and the EMS brought him to the hospital. He was unable to stand up due to right hip pain and leg pain and could not lift his leg off the ground. He also had some abrasion on the right side of the hand. His vitals on presentation were temperature of 97.8, pulse of 70, blood pressure of 204/96, 94% saturation on room air. He was alert oriented 3, not in acute distress however upon moving on his right side he seemed to be in severe distress due to the pain in the hip. HEENT PERRLA, normocephalic, hematoma present on the right parietal area, approximately 1 cm in diameter. CVS S1-S2 present, pansystolic murmur grade 4 out of 6. RS air entry bilaterally equal, no adventitious sounds. Per abdomen soft, nontender. Bilateral extremity, pulses palpable, no edema. Hip joint : Right hip joint tender on palpation, painful on moving, no bruising found, able to wiggle the toes of bilateral legs, however was not able to lift up the right hip due to pain, sensation mildly reduced bilaterally secondary to neuropathy. Hand x-ray, hip x-ray, pelvis x-ray and pelvis CT showed diffuse osteopenia, nondisplaced hairline fracture of the right iliac crest, right inferior and superior pubic rami fracture with irregularities of sacrum seen paralleling the sacroiliac joints and extensive degenerative disease, no acute fracture of the right hand, moderate degenerative changes throughout the right hand present. EKG showed NSR, Some lateral ST depressions in v5-v6 and LVH Cardiology consultation with Dr. Damico. Echo 10/2017 severe ANDERS 0.8 mean gradient 43, mild LA dilatation, LVEF wnl, mild LVH He was admitted to general medicine floor for treatment of hip fracture status post mechanical fall #1 Right superior and inferior pubic rami fracture with nondisplaced hairline fracture of the right iliac crest * The fracture was treated conservatively, orthopedic was on board, right lower extremity was neurovascularly intact, weightbearing as tolerated with a walker along with pain control was continued during inpatient stay. * He was asked to follow-up with orthopedic in 6 weeks for a repeat x-ray AP pelvis. * Pain management was done with p.o. Tylenol, IV Tylenol and Percocet for mild/ moderate and severe pain. * Fall precautions for continued, physical therapy and Occupational Therapy consulted. #2 Right wrist swelling + Parietal Subcutaneous hematoma. * Right wrist x-ray was suspicious for cortical avulsion of the radial aspect of the trapezium, the wrist was splinted and immobilized as per orthopedic and pain management was continued. * He also had subcutaneous hematoma on the parietal area, however CT head was negative for any acute findings, this was monitored and continued to improve gradually #2 Moderate/Severe Aortic Stenosis. * Patient is follow-up with Dr. Damico as outpatient, as per recent echocardiogram by Dr. Damico's office he was found to have a valve area 0.8 m, with follow-up with Dr. Damico as outpatient. * Echo 10/2017 severe ANDERS 0.8 mean gradient 43, mild LA dilatation, LVEF wnl, mild LVH Was previously on HCTZ/ACEi, stopped for orthostatic hypotension on prior admission #3 Hypertension. * Mr. Valentine came in with blood pressure of 200/100 mmHg, he was continued on metoprolol and Norvasc 2.5 mg for high blood pressure. Aspirin, Plavix, metoprolol, atorvastatin and Nitropatch 0.4 mg was continued. #4 CKD-4 * Remained stable. #5 Dysuria * He was also found to have some dysuria while in the hospital, urinalysis showed calcium oxalate crystals, there was no evidence of infection, bladder scanning was done for retention of any urine,, no major nephrolithiasis or obstructive stone was deemed and dysuria was probably secondary to BPH #6 Neck PAin * Mr. Goldman c/o neck pain, while in patient. Cervical xray didnot show any definite acute findings. other than advanced hypertrophic facet arthropathy and mild degenerative appearing anterior subluxation of C4 on C5 He was continued on p.o. PPI for GERD, Flomax for BPH, Synthroid for hypothyroidism, allopurinol for nephrolithiasis. Allergies: Coded Allergies: No Known Allergies (06/11/16) Significant Procedures: SERVICE DATE: 01/16/18 EXAM TYPE: RAD - XRY-AP PELVIS; XRY-HAND, RIGHT; XRY-HIP 2-3 VIEWS, RIGHT EXAMINATION: CR PELVIS CR RIGHT HIP CR RIGHT HAND CLINICAL INFORMATION: Fall. Right hip and hand pain. COMPARISON: Pelvis film dated 02/13/2014. TECHNIQUE: AP view of the pelvis. 2 views of the right hip. 3 views of the right hand. FINDINGS: PELVIS AND RIGHT HIP: Evaluation of the pelvis is limited since the pubic rami are not included on the [id number]. The right pubic rami are included on the right hip films. There is a nondisplaced hairline fracture of the right iliac crest. In addition, there may be subtle nondisplaced fracture of the right superior and inferior pubic rami, possibly subacute given indistinctness of the fracture margins. There is some irregularity of the mid and lower sacrum seen bilaterally in region of the sacroiliac joints, findings may be related to prominent hypertrophic changes at the joints though subtle insufficiency fractures of the sacrum cannot be excluded. The mid and lower sacrum are otherwise obscured by overlying stool filled loops of bowel. The right hip joint is normally located within the acetabulum. No hip fracture is seen. Mild degenerative changes noted with superior joint space narrowing and acetabular roof sclerosis and spurring and cystic changes. Arteriovascular calcifications is seen in the groin. Several calcified nodular densities are seen in the pelvis, unchanged from prior studies, likely phleboliths. A staple is partially included in the left upper paraspinal location. Prominent vertebral endplate spurring is seen in the included lower lumbar spine. RIGHT HAND: There is diffuse osteopenia. No acute fracture or dislocation is seen. There is moderate degenerative change seen with joint space narrowing, spurring, cystic changes involving all the interphalangeal joints and the first carpometacarpal joint and the first and second metacarpophalangeal joints. Associated mild soft tissue swelling in all digits is noted at the PIP joint level. No joint calcifications are seen. IMPRESSION: 1. Diffuse osteopenia. This limits assessment. 2. Nondisplaced hairline fracture of the right iliac crest. 3. Right superior and inferior pubic rami fractures, possibly subacute given indistinctness of the fracture margins. Irregularities of the sacrum seen paralleling the sacroiliac joints, possibly related to degenerative change. However, subtle insufficiency fractures cannot be excluded. Further assessment with CT scan of the pelvis is recommended. 4. No acute fracture of the right hand. 5. Moderate degenerative changes throughout the right hand as discussed above. SERVICE DATE: 01/16/18 EXAM TYPE: CAT - CT HEAD WO IV CONTRAST EXAMINATION: CT HEAD WITHOUT CONTRAST CLINICAL INFORMATION: Fall. Hit head. On Plavix. COMPARISON: CT head 03/10/2008. TECHNIQUE: Contiguous axial imaging was performed from the skull base to vertex without intravenous administration of contrast. DLP: 622.39 mGy-cm FINDINGS: There is no acute intracranial hemorrhage or abnormal extra-axial collection. No intracranial mass effect or midline shift. Lateral and third ventricles are proportionate to the subarachnoid spaces. No hydrocephalus. Ill-defined foci of hypoattenuation are visualized within the periventricular white matter and there are a few small chronic lacunar infarcts for instance within the left caudate head. Grossly no evidence of acute territorial infarct. There is focal swelling of the right parietal scalp near the vertex. The calvarium and skull base are intact. Mastoid air cells and middle ear cavities are well-aerated. Visualized paranasal sinuses are well-aerated. IMPRESSION: Focal swelling of the right parietal scalp near the vertex. No evidence of acute intracranial hemorrhage. SERVICE DATE: 01/16/18 EXAM TYPE: CAT - CT PELVIS WO IV CONTRAST EXAMINATION: CT PELVIS WITHOUT CONTRAST CLINICAL INFORMATION: Sacral pain status post fall. Evaluate for sacral fracture. COMPARISON: CT abdomen and pelvis 07/20/2017. TECHNIQUE: Helical scanning was performed with submillimeter collimation through the pelvis. Sagittal and coronal multiplanar 2-D reconstructions were obtained. DLP: 935.53 mGy-cm FINDINGS: There are acute minimally displaced fractures of the right superior and inferior pubic rami. There is also a transversely oriented fracture involving the right ilium. The sacrum is intact and the left hemipelvis is intact. Findings are consistent with a type II lateral compression fracture based on the Young-Adams classification of pelvic fractures. There is mild soft tissue swelling associated with the iliac fractures. No overt retroperitoneal hematoma is visualized within the [id number] of this examination. A few diverticula are visualized within the descending colon and sigmoid. Chronic changes of an appendectomy. The visualized colon and small bowel are otherwise unremarkable. No layering fluid is visualized within the peritoneal cavity. The urinary bladder and prostate gland are unremarkable. IMPRESSION: Acute right-sided type II lateral compression fracture of the pelvis based on the Young-Adams classification of pelvic fracture. Mild associated soft tissue swelling surrounding the pubic rami fractures. No overt retroperitoneal hematoma. SERVICE DATE: 01/17/18- EXAM TYPE: RAD - XRY-WRIST COMPLETE-RIGHT EXAMINATION: XR WRIST, RIGHT CLINICAL INFORMATION: Evaluate for fracture. COMPARISON: X-ray right hand dated 01/16/2018 TECHNIQUE: Four views of the right wrist. FINDINGS: Cortical step off suspicious for avulsion fracture noted at the radial aspect of the trapezium. Mild cortical irregularity in this region was also seen on the prior examination. Cortical elevation appears more obvious on the current study suspicious for avulsion. Subtle ossific/calcific density noted volar to the lunate bone adjacent to the scaphoid bone also seen on the prior examination. IMPRESSION: Findings are suspicious for cortical avulsion radial aspect trapezium. Hazy ossific/calcific densities noted again adjacent to the scaphoid lunate region. SERVICE DATE: 01/20/18-1032 EXAM TYPE: RAD - XRY-CERV SPINE 3 VIEWS OR LESS 3 VIEWS OF THE CERVICAL SPINE CLINICAL INFORMATION: Spinal tenderness/fall. COMPARISON: None available. FINDINGS: Study is limited with the C1 through the mid C6 levels of the cervical spine included on the lateral view. No acute fractures are identified. There is mild degenerative appearing anterior subluxation of C4 on C5. Advanced multilevel hypertrophic facet arthropathy. There is no prevertebral soft tissue swelling. Dens view is unremarkable. Surgical clips project over the neck. Imaged upper lungs are clear. IMPRESSION: Study is limited with the C1 through mid C6 levels of the cervical spine included on the lateral view. Assessment below these levels is nondiagnostic. No definite acute findings. Advanced hypertrophic facet arthropathy and mild degenerative appearing anterior subluxation of C4 on C5. Disposition Summary Disposition Principal Diagnosis: #1 Right superior and inferior pubic rami fracture with nondisplaced hairline fracture of the right iliac crest #2 Right wrist swelling + Parietal Subcutaneous hematoma. #3 Moderate/Severe Aortic Stenosis. Additional Diagnosis: #4 Hypertension. 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 Medications at Discharge Discharge Medications: Continue taking these medications: Allopurinol (Allopurinol) 300 MG TABLET 0.5 Tablet ORAL DAILY Qty = 45 Comments: Last Taken: 06/14/16 Time: 0900 AM Atorvastatin Calcium (Atorvastatin Calcium) 40 MG TABLET 1 Tablet ORAL DAILY Qty = 90 Comments: Last Taken: 06/14/16 Time: 1700 PM Clopidogrel Bisulfate (Clopidogrel) 75 MG TABLET 1 Tablet ORAL DAILY Qty = 90 Comments: Last Taken: 06/14/16 Time: 0900 AM Levothyroxine Sodium (Levothyroxine Sodium) 100 MCG TABLET 1 Tablet ORAL DAILY BEFORE BREAKFAST Comments: Last Taken: 06/14/16 Time: 0600 AM Metoprolol Succinate (Metoprolol Succinate) 50 MG TAB.ER.24H 1 Tablet ORAL TWICE DAILY Qty = 360 Comments: Last Taken: 06/14/16 Time: 0900 AM Nitroglycerin (Nitroglycerin Patch) 0.4 MG/HOUR PATCH.TD24 1 Patch On the skin DAILY Qty = 90 Comments: Last Taken: 06/14/16 Time: 1000 AM Promethazine HCl (Promethazine HCl) 25 MG TABLET 1 Tablet ORAL DAILY Qty = 90 Comments: NOT GIVEN IN HOSPITAL Tamsulosin HCl (Tamsulosin HCl) 0.4 MG CAP.ER.24H 1 Capsule ORAL DAILY Qty = 90 Comments: Last Taken: 06/14/16 Time: 0900 AM Folic Acid (Folic Acid) 0.4 MG TABLET 1 Tablet ORAL DAILY Comments: Last Taken: 06/14/16 Time: 0900 AM Aspirin (Aspirin*) 81 MG TAB.CHEW 2 Tablet ORAL DAILY Comments: NOT GIVEN IN HOSPITAL Cyanocobalamin (Vitamin B-12) 1,000 MCG TABLET 1 Tablet ORAL DAILY Comments: Last Taken: 06/14/16 Time: 0900 AM Cholecalciferol (Vitamin D3) (Vitamin D3) 2,000 UNIT TABLET 1 Tablet ORAL DAILY Comments: Last Taken: 06/14/16 Time: 0900 AM Ranitidine HCl (Ranitidine HCl) 75 MG TABLET 1 Tablet ORAL DAILY Vit A/Vit C/Vit E/Zinc/Copper (Preservision Areds Tablet) 7,160-113 TABLET 1 Tablet ORAL TWICE DAILY Amlodipine Besylate (Amlodipine Besylate) 2.5 MG TABLET 1 Tablet ORAL DAILY Qty = 30 Start taking the following new medications: Tramadol HCl (Tramadol HCl) 50 MG TABLET 1 Tablet ORAL EVERY SIX HOURS NEEDED as needed for pain Qty = 30 No Refills Sennosides/Docusate Sodium (Docusate Sodium-Senna Tablet) 8.6 MG-50 MG TABLET 1 Tablet ORAL DAILY Qty = 20 No Refills Polyethylene Glycol 3350 (Miralax) 17 GRAM POWD.PACK 1 Packet ORAL DAILY Qty = 30 No Refills Instructions: dissolve in water Baclofen (Baclofen) 10 MG TABLET 1 Tablet ORAL THREE TIMES DAILY as needed for neck pain Qty = 3 No Refills Instructions: give for 1 or 2 days then reevaluate Copies To: Austin SINGH,Stef Cast Attending MD Review Statement Documenting Attending: Krystal Uribe MD
--- NOTE | 2018-01-17 10:51 | RADIOLOGY REPORT ---
EXAMINATION: XR WRIST, RIGHT CLINICAL INFORMATION: Evaluate for fracture. COMPARISON: X-ray right hand dated 01/16/2018 TECHNIQUE: Four views of the right wrist. FINDINGS: Cortical step off suspicious for avulsion fracture noted at the radial aspect of the trapezium. Mild cortical irregularity in this region was also seen on the prior examination. Cortical elevation appears more obvious on the current study suspicious for avulsion. Subtle ossific/calcific density noted volar to the lunate bone adjacent to the scaphoid bone also seen on the prior examination. IMPRESSION: Findings are suspicious for cortical avulsion radial aspect trapezium. Hazy ossific/calcific densities noted again adjacent to the scaphoid lunate region.
--- NOTE | 2018-01-17 13:12 | Patient Discharge Instructions ---
Discharge Instructions General Discharge Information You were seen/treated for: pelvic fracture Special Instructions: Follow up xray pelvis AP in 6 weeks. Acute Coronary Syndrome Inclusion Criteria At DC or during hospital stay patient has or had the following: ACS DIAGNOSIS No Discharge Core Measures Meds if any: Prescribed or Continued at Discharge TAYA/ARB if EF <40% Yes Meds if any: NOT Prescribed or Continued at Discharge Congestive Heart Failure Inclusion Criteria At DC or during hospital stay patient has or had the following: CHF DIAGNOSIS No Discharge Core Measures Meds if any: Prescribed or Continued at Discharge Meds if any: NOT Prescribed or Continued at Discharge Cerebrovascular accident Inclusion Criteria At DC or during hospital stay patient has or had the following: CVA/TIA Diagnosis No Discharge Core Measures Meds if any: Prescribed or Continued at Discharge Meds if any: NOT Prescribed or Continued at Discharge Venous thromboembolism Inclusion Criteria VTE Diagnosis No VTE Type NONE VTE Confirmed by (Test) NONE Discharge Core Measures - Per Current guidelines, there needs to be overlap - treatment for the first 5 days of Warfarin therapy. - If discharged on Warfarin prior to 5 days of - overlap therapy, the patient will need to be - assessed for post discharge needs including - *Post discharge parental anticoagulation - *Warfarin and/or parental anticoagulation education - *Follow up date to check INR post discharge At least 5 days overlap therapy as Inpatient No Meds if any: Prescribed or Continued at Discharge Note: Overlap Therapy is Warfarin and Anticoagulant Meds if any: NOT Prescribed or Continued at Discharge
[2018-01-17 14:48] VITALS: BP 147/80
--- NOTE | 2018-01-17 18:44 | PN- Cardiology ---
Subjective Subjective: The patient complains of pain at the fracture site. No chest pain. No shortness of breath. No palpitations. No diaphoresis. Objective Vital Signs and I&Os Vital Signs Date Time Temp Pulse Resp B/P B/P Pulse O2 O2 Flow FiO2 Mean Ox Delivery Rate 01/17 1448 98.5 68 20 147/80 95 Room Air 01/17 1251 Room Air Room Air 01/17 0600 98.6 65 20 160/66 93 Room Air 01/17 0000 Room Air 01/16 2210 98.0 62 20 140/80 95 Room Air 01/16 2104 62 140/80 Intake & Output 01/17 1600 01/17 0800 01/17 0000 01/16 1600 01/16 0800 01/16 0000 Intake Total 750 240 300 Output Total 200 580 Balance 750 40 -280 Intake, Oral 750 240 300 Number 0 Bowel Movements Output, Urine 200 580 Patient 206 lb 200 lb Weight Weight Bed scale Reported by Patient Measurement Method Physical Exam: Gen: NAD HEENT: normal Lungs: clear to auscultation, normal resp. effort Heart: RRR, S1, S2, 3 out of 6 systolic murmur Abdomen: Soft, nontender, no masses Extremities: 1+ edema Neuro: Alert and oriented x 3, cranial nerves intact Current Medications: Current Medications Sig/Wilfredo Start time Last Medication Dose Route Stop Time Status Admin Acetaminophen 1,000 MG Q6P PRN 01/16 1600 DC N/A 1 UNIT IV 01/17 1559 Allopurinol 150 MG DAILY 01/17 09 AC 01/17 PO 1138 Amlodipine Besylate 2.5 MG DAILY 01/16 1610 AC 01/17 PO 0953 Aspirin 162 MG DAILY 01/17 09 AC 01/17 PO 1137 Atorvastatin Calcium 40 MG 1700 01/17 1700 AC 01/17 PO 1637 Bisacodyl 10 MG Q12P PRN 01/17 1445 AC IN Bisacodyl 5 MG DAILY 01/17 1435 AC 01/17 PO 1638 Clopidogrel Bisulfate 75 MG DAILY 01/17 09 AC 01/17 PO 0953 Cyanocobalamin 1,000 MCG DAILY 01/17 0900 AC 01/17 PO 1137 Famotidine 20 MG DAILY AC 01/17 0700 AC 01/17 PO 0632 Folic Acid 1 MG DAILY 01/17 0900 AC 01/17 PO 0954 Heparin Sodium 5,000 UNIT Q8 01/17 1400 AC 01/17 (Porcine) OK 1641 Levothyroxine Sodium 0.1 MG DAILY AC 01/17 0700 AC 01/17 PO 0632 Melatonin 5 MG AT BEDTIME 01/17 2100 AC PO Metoprolol Succinate 50 MG BID 01/16 2100 AC 01/17 PO 0953 Nitroglycerin 0.4 MG DAILY 01/17 0900 AC 01/17 TOP 0956 Non-Formulary 0 SEE ADMIN CRITERIA 01/17 1030 CAN Medication ANY Oxycodone HCl 5 MG Q12 01/17 1318 AC PO Oxycodone/ 1 TAB Q6P PRN 01/16 1600 AC 01/17 Acetaminophen PO 0152 Polyethylene Glycol 17 GM DAILY 01/17 1434 AC 01/17 PO 1638 Promethazine HCl 25 MG DAILY 01/17 0900 AC 01/17 PO 01/24 0859 1137 Senna/Docusate Sodium 2 TAB DAILY PRN 01/17 1445 AC 01/17 PO 1637 Tamsulosin HCl 0.4 MG DAILY 01/17 0900 AC 01/17 PO 0953 Results Last 48 Hrs of Labs/Mics: Laboratory Tests 01/17/18 1540: Urine Color YEL, Urine Clarity CLEAR, Urine pH 6.0, Ur Specific [place] 1.025, Urine Protein 100 H, Urine Ketones NEG, Urine Nitrite NEG, Urine Bilirubin NEG, Urine Urobilinogen 0.2, Ur Leukocyte Esterase NEG, Ur Microscopic SEDIMENT EXAMINED, Urine RBC RARE, Urine WBC RARE, Ur Epithelial Cells RARE, Urine Crystals 1+ CA OX H, Urine Bacteria RARE H, Urine Hemoglobin TRACE-INTACT H, Urine Glucose NEG 01/17/18 0708: Anion Gap 11, Estimated GFR 21 L, BUN/Creatinine Ratio 13.8, Magnesium 1.8, Troponin I 0.02, CBC w Diff NO MAN DIFF REQ, RBC 3.09 L, MCV 98.2 H, MCH 33.4 H, MCHC 34.0, RDW 13.9, MPV 8.0, Gran % 73.9, Lymphocytes % 10.8 L, Monocytes % 12.1 H, Eosinophils % 2.6, Basophils % 0.6, Absolute Granulocytes 6.0, Absolute Lymphocytes 0.9 L, Absolute Monocytes 1.0 H, Absolute Eosinophils 0.2, Absolute Basophils 0 01/16/18 1504: Anion Gap 10, Estimated GFR 21 L, BUN/Creatinine Ratio 13.4, Glucose 99, Calcium 8.6, Total Bilirubin 0.7, AST 22, ALT 39, Alkaline Phosphatase 83, Troponin I 0.02, Total Protein 6.0 L, Albumin 3.3 L, Globulin 2.7, Albumin/ Globulin Ratio 1.2, TSH 1.940, Free T4 1.37, CBC w Diff NO MAN DIFF REQ, RBC 3.34 L, MCV 95.7 H, MCH 32.6 H, MCHC 34.1, RDW 14.2, MPV 7.4, Gran % 79.8 H, Lymphocytes % 10.2 L, Monocytes % 7.4, Eosinophils % 2.2, Basophils % 0.4, Absolute Granulocytes 8.3 H, Absolute Lymphocytes 1.1 L, Absolute Monocytes 0.8 H, Absolute Eosinophils 0.2, Absolute Basophils 0 Assessment/Plan Assessment/Plan Assessment: 1. Pelvic / Pubic ramus fracture post mechanical fall. 2. Moderate aortic stenosis. 3. Abnormal ECG 4. History of PAD with 70% left SFA stenosis 5. Mild bilateral carotid plaque status post bilateral CEA 6. History of AAA repair with residual small AAA 7. History of CAD Plan: * Continue current cardiac medications. * If blood pressure remains elevated, would consider increasing amlodipine to 5 mg daily Continue telemetry? Not applicable
[2018-01-17 22:04] VITALS: BP 130/70
--- NOTE | 2018-01-18 07:06 | PN- Housestaff ---
See Addendum Subjective Follow-up For: right pelvic fracture right hand injury Subjective: patient reported some dysuria yesterday hand pain is improved right hip pain is only present when moving, comfortable at rest awaiting physical therapy evaluation Review of Systems Constitutional: Reports: see HPI. Objective Last 24 Hrs of Vital Signs/I&O Vital Signs Date Time Temp Pulse Resp B/P B/P Pulse O2 O2 Flow FiO2 Mean Ox Delivery Rate 01/18 0726 99.7 64 18 152/58 96 Room Air 01/17 2204 98.5 68 20 130/70 93 Room Air 01/17 2059 68 130/70 01/17 1448 98.5 68 20 147/80 95 Room Air 01/17 1251 Room Air Room Air Intake & Output 01/18 1600 01/18 0800 01/18 0000 Intake Total 240 Output Total 280 Balance -40 Intake, Oral 240 Number 0 Bowel Movements Output, Urine 280 Physical Exam General Appearance: Alert, Oriented X3, Cooperative, No Acute Distress HEENT: R parietal mild hematoma, stable Cardiovascular: Regular Rate, Normal S1, Normal S2, 3/6 systolic murmur Lungs: Clear to Auscultation, Normal Air Movement Abdomen: Normal Bowel Sounds, Soft, No Tenderness, No Masses Extremities: No Clubbing, No Cyanosis, No Edema, Normal Pulses, b/l LE ROM limited by pain, R hand in pica splint with thumb and wrist immobilized Assessment/Plan Assessment: 87 year old male with past medical history significant for hypertension, hyperlipidemia, severa aortic stenosis, abdominal aortic aneurysm repair, hypothyroidism, BPH, GERD, and CKD stage IV presents after a mechanical fall with right sided pelvic fractures. Pelvic fractures: Analgesia- oxycodone 5mg bid standing plus prn for breakthrough Encouraged to take prior to physical therapy Avoid NSAIDS because of CKD Orthopedics consultation with Dr. Kerr Weight bearing as tolerated, may have difficulty with walker because of right hand injury STR placement Right wrist [id number] avulsion radial aspect trapezium Right thumb pica splint Outpatient orthopedics follow up Hypertension: Continue norvasc 2.5 Blood pressure 130s-150s Continue aspirin, plavix, metoprolol, atorvastatin, and nitropatch 0.4 Severe aortic stenosis: Avoid hypotension Echo 10/2017 severe ANDERS 0.8 mean gradient 43, mild LA dilatation, LVEF wnl, mild LVH Was previously on HCTZ/ACEi, stopped for orthostatic hypotension on prior admission CKD Stage IV: Stable, avoid nephrotoxic agents GERD: Continue PO PPI BPH: Continue flomax Hypothyroidism: Continue synthroid 100mcg daily History of nephrolithiasis: Continue allopurinol 150mg Dysuria: Urinalysis yesterday showed calcium oxalate crystals and blood, no evidence of infection No stones commented on pelvic CT check bladder ultrasound for PVR Will follow up urine culture Regular diet with 2g sodium restriction DVT ppx-mechanical ALPs today DNR/DNI Problem List: 1. Pelvic fracture 2. Fall Pain Ratin Pain Location: right hand and pelvis Pain Goal: Pain 4 or less Pain Plan: oxycodone Tomorrow's Labs & Rationales: none
[2018-01-18 07:26] VITALS: BP 152/58
--- NOTE | 2018-01-18 11:32 | PN- Cardiology ---
Subjective Subjective: Doing okay. Blood pressure remained stable. No other cardiac issues at the present time. Objective Vital Signs and I&Os Vital Signs Date Time Temp Pulse Resp B/P B/P Pulse O2 O2 Flow FiO2 Mean Ox Delivery Rate 01/18 1054 67 128/78 01/18 0953 Room Air Room Air 01/18 0856 68 138/72 01/18 0726 99.7 64 18 152/58 96 Room Air 01/17 2204 98.5 68 20 130/70 93 Room Air 01/17 2059 68 130/70 01/17 1448 98.5 68 20 147/80 95 Room Air 01/17 1251 Room Air Room Air Intake & Output 01/18 1600 01/18 0800 01/18 0000 01/17 1600 01/17 0800 01/17 0000 Intake Total 240 750 240 300 Output Total 280 200 580 Balance -40 750 40 -280 Intake, Oral 240 750 240 300 Number 0 0 0 Bowel Movements Output, Urine 280 200 580 Patient 206 lb 200 lb Weight Weight Bed scale Reported by Patient Measurement Method Physical Exam: General Appearance: well developed/nourished, alert, awake, oriented Head: normal HEENT: Normal Neck: supple, JVP normal, carotid upstrokes normal bilaterally, no masses or thyromegaly Respiratory: chest non-tender, clear to auscultation and percussion bilaterally Cardiovascular: regular rate/rhythm, normal S1, S2, 3/6 systolic murmur Abdomen: normal bowel sounds, soft, non-tender Extremities: normal inspection, no edema, right wrist wrapped Vascular: Pulses are 2+ and equal bilaterally Neurologic: Grossly normal/nonfocal Current Medications: Current Medications Sig/Wilfredo Start time Last Medication Dose Route Stop Time Status Admin Acetaminophen 1,000 MG Q6P PRN 01/16 1600 DC N/A 1 UNIT IV 01/17 1559 Allopurinol 150 MG DAILY 01/17 09 AC 01/18 PO 1051 Amlodipine Besylate 2.5 MG DAILY 01/16 1610 AC 01/18 PO 1054 Aspirin 162 MG DAILY 01/17 0900 AC 01/18 PO 0854 Atorvastatin Calcium 40 MG 1700 01/17 1700 AC 01/17 PO 1637 Bisacodyl 10 MG Q12P PRN 01/17 1445 AC [place] Bisacodyl 5 MG DAILY 01/17 1435 AC 01/18 PO 0854 Clopidogrel Bisulfate 75 MG DAILY 01/17 0900 AC 01/18 PO 1051 Cyanocobalamin 1,000 MCG DAILY 01/17 0900 AC 01/18 PO 0854 Famotidine 20 MG DAILY AC 01/17 0700 AC 01/18 PO 0557 Folic Acid 1 MG DAILY 01/17 0900 AC 01/18 PO 1056 Heparin Sodium 5,000 UNIT Q8 01/17 1400 AC 01/18 (Porcine) SC 0558 Levothyroxine Sodium 0.1 MG DAILY AC 01/17 0700 AC 01/18 PO 0557 Melatonin 5 MG AT BEDTIME 01/17 2100 AC 01/17 PO 2059 Metoprolol Succinate 50 MG BID 01/16 2100 AC 01/18 PO 1054 Nitroglycerin 0.4 MG DAILY 01/17 09 AC 01/18 TOP 0856 Oxycodone HCl 5 MG Q12 01/17 1318 AC 01/18 PO 0854 Oxycodone/ 1 TAB Q6P PRN 01/16 1600 AC 01/17 Acetaminophen PO 0152 Polyethylene Glycol 17 GM DAILY 01/17 1434 AC 01/18 PO 0852 Promethazine HCl 25 MG DAILY 01/17 09 AC 01/18 PO 01/24 0859 1057 Senna/Docusate Sodium 2 TAB DAILY PRN 01/17 1445 AC 01/17 PO 1637 Tamsulosin HCl 0.4 MG DAILY 01/17 09 AC 01/18 PO 0856 Results Last 48 Hrs of Labs/Mics: Laboratory Tests 01/17/18 1540: Urine Color YEL, Urine Clarity CLEAR, Urine pH 6.0, Ur Specific [place] 1.025, Urine Protein 100 H, Urine Ketones NEG, Urine Nitrite NEG, Urine Bilirubin NEG, Urine Urobilinogen 0.2, Ur Leukocyte Esterase NEG, Ur Microscopic SEDIMENT EXAMINED, Urine RBC RARE, Urine WBC RARE, Ur Epithelial Cells RARE, Urine Crystals 1+ CA OX H, Urine Bacteria RARE H, Urine Hemoglobin TRACE-INTACT H, Urine Glucose NEG 01/17/18 0708: Anion Gap 11, Estimated GFR 21 L, BUN/Creatinine Ratio 13.8, Magnesium 1.8, Troponin I 0.02, CBC w Diff NO MAN DIFF REQ, RBC 3.09 L, MCV 98.2 H, MCH 33.4 H, MCHC 34.0, RDW 13.9, MPV 8.0, Gran % 73.9, Lymphocytes % 10.8 L, Monocytes % 12.1 H, Eosinophils % 2.6, Basophils % 0.6, Absolute Granulocytes 6.0, Absolute Lymphocytes 0.9 L, Absolute Monocytes 1.0 H, Absolute Eosinophils 0.2, Absolute Basophils 0 01/16/18 1504: Anion Gap 10, Estimated GFR 21 L, BUN/Creatinine Ratio 13.4, Glucose 99, Calcium 8.6, Total Bilirubin 0.7, AST 22, ALT 39, Alkaline Phosphatase 83, Troponin I 0.02, Total Protein 6.0 L, Albumin 3.3 L, Globulin 2.7, Albumin/ Globulin Ratio 1.2, TSH 1.940, Free T4 1.37, CBC w Diff NO MAN DIFF REQ, RBC 3.34 L, MCV 95.7 H, MCH 32.6 H, MCHC 34.1, RDW 14.2, MPV 7.4, Gran % 79.8 H, Lymphocytes % 10.2 L, Monocytes % 7.4, Eosinophils % 2.2, Basophils % 0.4, Absolute Granulocytes 8.3 H, Absolute Lymphocytes 1.1 L, Absolute Monocytes 0.8 H, Absolute Eosinophils 0.2, Absolute Basophils 0 Assessment/Plan Assessment/Plan Assessment: 1. Pelvic / Pubic ramus fracture post mechanical fall. 2. Moderate aortic stenosis. 3. Abnormal ECG 4. History of PAD with 70% left SFA stenosis 5. Mild bilateral carotid plaque status post bilateral CEA 6. History of AAA repair with residual small AAA 7. History of CAD Plan: * Continue current cardiac medications. * In view of the patient's stable blood pressure, continue current amlodipine dose for now. However, once the patient is up and more ambulatory, his blood pressure will need close monitoring to rule out further increase. Continue telemetry? No
[2018-01-18 14:54] VITALS: BP 108/60
[2018-01-18 14:56] VITALS: BP 120/70
[2018-01-18 22:09] VITALS: BP 110/60
[2018-01-19 05:55] VITALS: BP 154/64
--- NOTE | 2018-01-19 10:43 | PN- Att Addend ---
Attending Addendum Attending Brief Note Patient seen and examined. Resting comfortably not in acute distress. Daughter present at the bedside. Overnight he had a temperature of 102.4. Is complaining of cough productive of yellow phlegm. Denies chest pain. Denies shortness of breath. He is hemodynamically stable. He is not requiring oxygen supplementation. On examination he has adequate entry bilaterally with no added sounds. Denies nausea vomiting. Denies abdominal pain. Denies diarrhea. He reports that he is dysuria has resolved. On exam abdomen is soft and nontender. He has an intact splint over right forearm and hand. He has no peripheral edema. The hematoma on the scalp is resolving. Patient reports that he has not had a bowel movement in a week. He does have a bowel regimen ordered. Problems: 1. Fever 2. Pelvic fracture 3. Right wrist fracture 4. Hypertension 5. Aortic stenosis 6. Stage IV chronic kidney disease 7. Constipation Plan: -Obtain blood cultures. Obtain sputum cultures. Obtain chest x-ray. -Hold off antibiotic therapy for now pending above -Continue current bowel regimen. Recommend discontinuing oxycodone and Percocet due to opioid-induced constipation. Begin patient on Ultram 50 mg orally every 4 hours as needed pain. -Continue physical therapy as tolerated.
--- NOTE | 2018-01-19 11:52 | PN- Housestaff ---
Subjective Follow-up For: Fever Right pelvic fracture Right hand injury Subjective: Patient resting comfortably, family at bedside. Had a fever of 102.9 yesterday evening, reports cough with yellow color sputum production. Reports resolution of dysuria. Review of Systems Constitutional: Reports: no symptoms. EENTM: Reports: no symptoms. Cardiovascular: Reports: no symptoms. Respiratory: Reports: cough, sputum production. Gastrointestinal: Reports: no symptoms. Genitourinary: Reports: no symptoms. Musculoskeletal: Reports: no symptoms. Skin: Reports: no symptoms. Neurological/Psychological: Reports: no symptoms. Hematologic/Endocrine: Reports: no symptoms. Immunologic/Allergic: Reports: no symptoms. Objective Last 24 Hrs of Vital Signs/I&O Vital Signs Date Time Temp Pulse Resp B/P B/P Pulse O2 O2 Flow FiO2 Mean Ox Delivery Rate 01/19 1404 98.9 61 20 151/65 94 Room Air 01/19 0836 98.4 63 20 154/64 01/19 0835 98.4 63 20 154/64 01/19 0835 98.4 63 20 154/64 01/19 0555 98.4 63 20 154/64 93 Room Air 01/18 2230 98.4 01/18 2209 100.0 71 20 110/60 93 Room Air 01/18 2100 71 110/60 01/18 2054 100.0 01/18 1926 102.4 01/18 1908 102.4 Intake & Output 01/19 1600 01/19 0800 01/19 0000 Intake Total 340 120 480 Output Total 900 Balance 340 120 -420 Intake, Oral 340 120 480 Output, Urine 900 Patient 216 lb Weight Weight Bed scale Measurement Method Physical Exam General Appearance: Alert, Cooperative, No Acute Distress Skin: No Rashes, No Breakdown Cardiovascular: Regular Rate, Normal S1, Normal S2 Lungs: Normal Air Movement Abdomen: Normal Bowel Sounds, Soft, No Tenderness Extremities: No Clubbing, No Cyanosis, No Edema Current Medications: Current Medications Sig/Wilfredo Start time Last Medication Dose Route Stop Time Status Admin Acetaminophen 650 MG ONCE ONE 01/18 1930 DC 01/18 PO 01/18 Allopurinol 150 MG DAILY 01/17 09 AC 01/19 PO 0835 Amlodipine Besylate 2.5 MG DAILY 01/16 1610 AC 01/19 PO 0835 Aspirin 162 MG DAILY 01/17 09 AC 01/19 PO 0836 Atorvastatin Calcium 40 MG 1700 01/17 1700 AC 01/18 PO 1628 Bisacodyl 10 MG Q12P PRN 01/17 1445 AC [place] Bisacodyl 5 MG DAILY 01/17 1435 AC 01/19 PO 0836 Clopidogrel Bisulfate 75 MG DAILY 01/17 0900 AC 01/19 PO 0835 Cyanocobalamin 1,000 MCG DAILY 01/17 0900 AC 01/19 PO 0835 Famotidine 20 MG DAILY AC 01/17 0700 AC 01/19 PO 0532 Folic Acid 1 MG DAILY 01/17 0900 AC 01/19 PO 0835 Heparin Sodium 5,000 UNIT Q8 01/17 1400 AC 01/19 (Porcine) SC 1401 Levothyroxine Sodium 0.1 MG DAILY AC 01/17 0700 AC 01/19 PO 0532 Melatonin 5 MG AT BEDTIME 01/17 2100 AC 01/18 PO 2100 Metoprolol Succinate 50 MG BID 01/16 2100 AC 01/19 PO 0835 Nitroglycerin 0.4 MG DAILY 01/17 09 AC 01/19 TOP 0834 Oxycodone HCl 5 MG Q12 01/17 1318 DC 01/19 PO 0834 Oxycodone/ 1 TAB Q6P PRN 01/16 1600 DC 01/19 Acetaminophen PO 0540 Polyethylene Glycol 17 GM DAILY 01/17 1434 AC 01/19 PO 0830 Promethazine HCl 25 MG DAILY 01/17 0900 AC 01/19 PO 01/24 0859 0837 Senna/Docusate Sodium 2 TAB .STK-MED ONE 01/18 2059 DC PO 01/18 2100 Senna/Docusate Sodium 2 TAB DAILY PRN 01/17 1445 AC 01/18 PO 2100 Tamsulosin HCl 0.4 MG DAILY 01/17 0900 AC 01/19 PO 0836 Tramadol HCl 50 MG Q12H 01/19 1800 AC PO Last 24 Hrs of Lab/Stephon Results Last 24 Hrs of Labs/Mics: Laboratory Tests 01/19/18 1000: CBC w Diff NO MAN DIFF REQ, RBC 3.11 L, MCV 97.0 H, MCH 32.8 H, MCHC 33.8, RDW 13.9, MPV 8.3, Gran % 68.3, Lymphocytes % 14.1 L, Monocytes % 14.3 H, Eosinophils % 2.7, Basophils % 0.6, Absolute Granulocytes 5.2, Absolute Lymphocytes 1.1 L, Absolute Monocytes 1.1 H, Absolute Eosinophils 0.2, Absolute Basophils 0 01/18/182144: Urinalysis MOD H, Urine Color YEL, Urine Clarity CLEAR, Urine pH 6.0, Ur Specific [place] 1.020, Urine Protein >=300 H, Urine Ketones NEG, Urine Nitrite NEG, Urine Bilirubin NEG, Urine Urobilinogen 0.2, Ur Leukocyte Esterase NEG, Ur Microscopic SEDIMENT EXAMINED, Urine RBC 1-3, Urine WBC RARE, Urine Hemoglobin TRACE-INTACT H, Urine Glucose NEG Microbiology 01/19 1330 BLOOD: Blood Culture - RECD 01/19 1159 BLOOD: Blood Culture - ORD 01/20 944 LOWER RESP: Respiratory Culture - ORD 01/20 944 LOWER RESP: Gram Stain - ORD 01/18 2145 URINE ROUT: Urine Culture - RES Assessment/Plan Assessment: 87 year old male with past medical history significant for hypertension, hyperlipidemia, severa aortic stenosis, abdominal aortic aneurysm repair, hypothyroidism, BPH, GERD, and CKD stage IV presents after a mechanical fall with right sided pelvic fractures. Pelvic fractures: Had a MAXIMUM TEMPERATURE 102.4 yesterday evening. Will obtain chest x-ray, home blood and sputum cultures. Analgesia- discontinue opiates due to opioid-induced constipation. Started on Tramadol 50 mg every 12H. Can increase up to 100 mg twice a day(Max dose of 200 mg i.e, 100 BID per pharmacy) Encouraged to take prior to physical therapy Avoid NSAIDS because of CKD Orthopedics consultation with Dr. Kerr Weight bearing as tolerated, may have difficulty with walker because of right hand injury STR placement Right wrist [id number] avulsion radial aspect trapezium Right thumb pica splint Outpatient orthopedics follow up Hypertension: Continue norvasc 2.5 Blood pressure 130s-150s Continue aspirin, plavix, metoprolol, atorvastatin, and nitropatch 0.4 Severe aortic stenosis: Avoid hypotension Echo 10/2017 severe ANDERS 0.8 mean gradient 43, mild LA dilatation, LVEF wnl, mild LVH Was previously on HCTZ/ACEi, stopped for orthostatic hypotension on prior admission CKD Stage IV: Stable, avoid nephrotoxic agents GERD: Continue PO PPI BPH: Continue flomax Hypothyroidism: Continue synthroid 100mcg daily History of nephrolithiasis: Continue allopurinol 150mg Dysuria: Urinalysis yesterday showed calcium oxalate crystals and blood, no evidence of infection No stones commented on pelvic CT check bladder ultrasound for PVR Will follow up urine culture Regular diet with 2g sodium restriction DVT ppx-mechanical ALPs today DNR/DNI Problem List: 1. Pelvic fracture Pain Ratin Pain Location: Pelvis, lower ext Pain Goal: Remain pain free Pain Plan: Pain Pathway Tomorrow's Labs & Rationales: None
[2018-01-19 12:23] LABS: ABSOLUTE BASOPHIL COUNT 0 /CUMM (0.0-0.2); ABSOLUTE EOSINOPHIL COUNT 0.2 /CUMM (0.0-0.7); ABSOLUTE GRANULOCYTE CT 5.2 /CUMM (1.4-6.5); ABSOLUTE LYMPH COUNT 1.1 /CUMM (1.2-3.4); ABSOLUTE MONOCYTE COUNT 1.1 /CUMM (0.10-0.60); BASOPHIL % 0.6 % (0.0-2.0); EOSINOPHIL % 2.7 % (0-5); GRANULOCYTE % 68.3 % (42.2-75.2); HEMATOCRIT 30.1 % (42-52); MEAN CORPUSCULAR HGB 32.8 PG (27.0-31.0); MEAN CORPUSCULAR HGB CONC 33.8 G/DL (33.0-37.0); MEAN PLATELET VOLUME 8.3 FL (7.4-10.4); PLATELET COUNT 101 /CUMM (130-400); RBC DISTRIBUTION WIDTH 13.9 % (11.5-14.5); RED BLOOD CELL CT 3.11 /CUMM (4.70-6.10); WHITE BLOOD CELL COUNT 7.7 /CUMM (4.8-10.8)
[2018-01-19 14:04] VITALS: BP 151/65
--- NOTE | 2018-01-19 15:22 | RADIOLOGY REPORT ---
EXAMINATION: XR PORTABLE CHEST CLINICAL INFORMATION: Cough and SOB. COMPARISON: Chest 06/11/2016. TECHNIQUE: Portable frontal view of the chest was obtained. FINDINGS: Both lungs are well-expanded and clear of acute process. The heart size and pulmonary vascularity is normal. No gross bony abnormality seen. IMPRESSION: Unremarkable chest exam.
[2018-01-19 20:00] VITALS: BP 140/66
[2018-01-19 21:47] VITALS: BP 138/68; BP 138/78
[2018-01-20 05:47] VITALS: BP 136/62
--- NOTE | 2018-01-20 08:47 | PN- Housestaff ---
See Addendum Subjective Follow-up For: mechanical fall pelvic and right hand fractures Subjective: patient was febrile over the weekend tmax 102.4 01/18, now afebrile apparently coughed some purulent sputum and had a chest x-ray performed did have some complaints of dysuria only complaint at this time is neck pain and stiffness with limited ROM Review of Systems Constitutional: Reports: see HPI. Objective Last 24 Hrs of Vital Signs/I&O Vital Signs Date Time Temp Pulse Resp B/P B/P Pulse O2 O2 Flow FiO2 Mean Ox Delivery Rate 01/20 0908 98.4 67 20 136/62 01/20 0908 98.4 67 20 136/62 01/20 0908 98.4 67 20 136/62 01/20 0547 98.4 67 20 136/62 93 Room Air 01/19 2147 98.9 78 18 138/68 94 Room Air 01/19 2000 98.8 74 18 140/66 94 Room Air 01/19 1958 74 140/66 01/19 1933 99.2 01/19 1600 Room Air 01/19 1404 98.9 61 20 151/65 94 Room Air Intake & Output 01/20 1600 01/20 0800 01/20 0000 Intake Total 100 600 Output Total 200 Balance -100 600 Intake, Oral 100 600 Output, Urine 200 Patient 96.7 kg Weight Physical Exam General Appearance: Alert, Oriented X3, Cooperative, No Acute Distress HEENT: right parietal hematoma improving, reported paraspinal cervical tenderness on palpation Cardiovascular: Regular Rate, Normal S1, Normal S2, 3/6 systolic murmur Lungs: Clear to Auscultation, Normal Air Movement Abdomen: Normal Bowel Sounds, Soft, No Tenderness, No Masses Extremities: No Clubbing, No Cyanosis, No Edema, Normal Pulses, R hand in spica splint Current Medications: Current Medications Sig/Wilfredo Start time Last Medication Dose Route Stop Time Status Admin Allopurinol 150 MG DAILY 01/17 09 AC 01/20 PO 09 Amlodipine Besylate 2.5 MG DAILY 01/16 1610 AC 01/20 PO 09 Aspirin 162 MG DAILY 01/17 09 AC 01/20 PO 0908 Atorvastatin Calcium 40 MG 1700 01/17 1700 AC 01/19 PO 1704 Bisacodyl 10 MG Q12P PRN 01/17 1445 AC NH Bisacodyl 5 MG DAILY 01/17 1435 AC 01/20 PO 0908 Clopidogrel Bisulfate 75 MG DAILY 01/17 0900 AC 01/20 PO 0908 Cyanocobalamin 1,000 MCG DAILY 01/17 0900 AC 01/20 PO 0908 Famotidine 20 MG DAILY AC 01/17 0700 AC 01/20 PO 0530 Folic Acid 1 MG DAILY 01/17 0900 AC 01/20 PO 0908 Heparin Sodium 5,000 UNIT Q8 01/17 1400 AC 01/20 (Porcine) SC 0530 Levothyroxine Sodium 0.1 MG DAILY AC 01/17 0700 AC 01/20 PO 0530 Melatonin 5 MG AT BEDTIME 01/17 2100 AC 01/19 PO 1958 Metoprolol Succinate 50 MG BID 01/16 2100 AC 01/20 PO 0908 Nitroglycerin 0.4 MG DAILY 01/17 09 AC 01/20 TOP 0905 Oxycodone HCl 5 MG Q12 01/17 1318 DC 01/19 PO 0834 Oxycodone/ 1 TAB Q6P PRN 01/16 1600 DC 01/19 Acetaminophen PO 0540 Polyethylene Glycol 17 GM DAILY 01/17 1434 AC 01/20 PO 0905 Promethazine HCl 25 MG DAILY 01/17 0900 AC 01/20 PO 01/24 0859 0907 Senna/Docusate Sodium 2 TAB DAILY PRN 01/17 1445 AC 01/20 PO 0905 Tamsulosin HCl 0.4 MG DAILY 01/17 0900 AC 01/20 PO 0908 Tramadol HCl 50 MG Q12H 01/19 1800 AC 01/20 PO 0530 Last 24 Hrs of Lab/Stephon Results Last 24 Hrs of Labs/Mics: Laboratory Tests 01/19/18 1000: CBC w Diff NO MAN DIFF REQ, RBC 3.11 L, MCV 97.0 H, MCH 32.8 H, MCHC 33.8, RDW 13.9, MPV 8.3, Gran % 68.3, Lymphocytes % 14.1 L, Monocytes % 14.3 H, Eosinophils % 2.7, Basophils % 0.6, Absolute Granulocytes 5.2, Absolute Lymphocytes 1.1 L, Absolute Monocytes 1.1 H, Absolute Eosinophils 0.2, Absolute Basophils 0 Microbiology 01/19 1330 BLOOD: Blood Culture - RECD 01/19 1159 BLOOD: Blood Culture - CAN Cancelled: SPECIMEN NOT RECEIVED. 06/23 0944 LOWER RESP: Respiratory Culture - COLB 01/20 944 LOWER RESP: Gram Stain - COLB Assessment/Plan Assessment: 87 year old male with past medical history significant for hypertension, hyperlipidemia, severa aortic stenosis, abdominal aortic aneurysm repair, hypothyroidism, BPH, GERD, and CKD stage IV presents after a mechanical fall with right sided pelvic fractures and developed a fever over the weekend. Fall with pelvic fractures and right hand fractures: Analgesia-oxycodone discontinued for constipation, on tramadol Obtain x-ray for neck pain to evaluate for fracture Avoid NSAIDS because of CKD Weight bearing as tolerated, awaiting STR placement Right thumb pica splint Outpatient orthopedics follow up Hypertension: Blood pressure 130s Continue aspirin, plavix, metoprolol, atorvastatin, norvasc, and nitropatch 0.4 Severe aortic stenosis: Avoid hypotension Echo 10/2017 severe ANDERS 0.8 mean gradient 43, mild LA dilatation, LVEF wnl, mild LVH Was previously on HCTZ/ACEi, stopped for orthostatic hypotension on prior admission CKD Stage IV: Stable, avoid nephrotoxic agents GERD: Continue PO PPI BPH: Continue flomax Hypothyroidism: Continue synthroid 100mcg daily History of nephrolithiasis: Continue allopurinol 150mg Fever with dysuria: Urinalysis yesterday showed calcium oxalate crystals and blood, no evidence of infection No stones commented on pelvic CT, no urinary retention Urine culture negative, blood cultures pending Chest x-ray negative for infiltrate, will obtain sputum if cough continues Monitoring off antibiotics No leukocytosis or bandemia Wound consult for gluteal cleft ulceration Regular diet with 2g sodium restriction DVT ppx-mechanical ALPs today DNR/DNI Awaiting STR Problem List: 1. Fall 2. Pelvic fracture Pain Ratin Pain Location: neck Pain Goal: Pain 4 or less Pain Plan: tramadol Tomorrow's Labs & Rationales: none
--- NOTE | 2018-01-20 12:48 | RADIOLOGY REPORT ---
3 VIEWS OF THE CERVICAL SPINE CLINICAL INFORMATION: Spinal tenderness/fall. COMPARISON: None available. FINDINGS: Study is limited with the C1 through the mid C6 levels of the cervical spine included on the lateral view. No acute fractures are identified. There is mild degenerative appearing anterior subluxation of C4 on C5. Advanced multilevel hypertrophic facet arthropathy. There is no prevertebral soft tissue swelling. Dens view is unremarkable. Surgical clips project over the neck. Imaged upper lungs are clear. IMPRESSION: Study is limited with the C1 through mid C6 levels of the cervical spine included on the lateral view. Assessment below these levels is nondiagnostic. No definite acute findings. Advanced hypertrophic facet arthropathy and mild degenerative appearing anterior subluxation of C4 on C5.
[2018-01-20 14:15] VITALS: BP 150/80
[2018-01-20 21:24] VITALS: BP 140/66
[2018-01-21 06:15] VITALS: BP 140/64
--- NOTE | 2018-01-21 07:15 | PN- Housestaff ---
See Addendum Subjective Follow-up For: mechanical fall with neck muscle strain right hand and pelvic fractures Subjective: patient's hand pain is improved, his neck pain is now the biggest source of his pain except when getting out of bed he has significant hip pain no urinary retention Review of Systems Constitutional: Reports: see HPI. Objective Last 24 Hrs of Vital Signs/I&O Vital Signs Date Time Temp Pulse Resp B/P B/P Pulse O2 O2 Flow FiO2 Mean Ox Delivery Rate 01/21 0807 98.4 67 20 140/64 01/21 0807 98.4 67 20 140/64 01/21 0806 98.4 67 20 140/64 01/21 0615 98.4 67 20 140/64 92 Room Air 01/20 2124 99.0 79 18 140/66 94 Room Air 01/20 2009 79 140/66 01/20 1415 98.0 73 18 150/80 94 Room Air Intake & Output 01/21 1600 01/21 0800 01/21 0000 Intake Total 100 600 Output Total 600 500 Balance -500 100 Intake, Oral 100 600 Number 1 Bowel Movements Output, Urine 600 500 Physical Exam General Appearance: Alert, Oriented X3, Cooperative, No Acute Distress Cardiovascular: Regular Rate, Normal S1, Normal S2, No Murmurs Lungs: Clear to Auscultation, Normal Air Movement Abdomen: Normal Bowel Sounds, Soft, No Tenderness, No Masses Extremities: No Clubbing, No Cyanosis, No Edema, Normal Pulses, right wrist thumb splinted Current Medications: Current Medications Sig/Wilfredo Start time Last Medication Dose Route Stop Time Status Admin Allopurinol 150 MG DAILY 01/17 09 AC 01/21 PO 08 Amlodipine Besylate 2.5 MG DAILY 01/16 1610 AC 01/21 PO 0806 Aspirin 162 MG DAILY 01/17 09 AC 01/21 PO 0807 Atorvastatin Calcium 40 MG 1700 01/17 1700 AC 01/20 PO 1606 Baclofen 5 MG TID 01/20 1452 DC 01/21 PO 01/21 0901 0807 Bisacodyl 10 MG Q12P PRN 01/17 1445 AC MO Bisacodyl 5 MG DAILY 01/17 1435 AC 01/21 PO 0807 Clopidogrel Bisulfate 75 MG DAILY 01/17 09 AC 01/21 PO 0806 Cyanocobalamin 1,000 MCG DAILY 01/17 0900 AC 01/21 PO 0806 Famotidine 20 MG DAILY AC 01/17 0700 AC 01/21 PO 0600 Folic Acid 1 MG DAILY 01/17 0900 AC 01/21 PO 0807 Heparin Sodium 5,000 UNIT Q8 01/17 1400 AC 01/21 (Porcine) SC 0559 Levothyroxine Sodium 0.1 MG DAILY AC 01/17 0700 AC 01/21 PO 0601 Melatonin 5 MG AT BEDTIME 01/17 2100 AC 01/20 PO 2009 Metoprolol Succinate 50 MG BID 01/16 2100 AC 01/21 PO 0807 Nitroglycerin 0.4 MG DAILY 01/17 0900 AC 01/21 TOP 0806 Patient Medication 1 ED ONE ONE 01/21 0915 DC Teaching ED 01/21 0916 Polyethylene Glycol 17 GM DAILY 01/17 1434 AC 01/21 PO 0809 Promethazine HCl 25 MG DAILY 01/17 0900 AC 01/21 PO 01/24 0859 0806 Senna/Docusate Sodium 2 TAB DAILY 01/21 0900 AC 01/21 PO 0805 Senna/Docusate Sodium 2 TAB DAILY PRN 01/17 1445 DC 01/20 PO 01/21 0859 0905 Sodium Phosphate 1 UNIT ONCE ONE 01/20 1500 DC MO 01/20 1501 Tamsulosin HCl 0.4 MG DAILY 01/17 0900 AC 01/21 PO 0807 Tramadol HCl 50 MG Q12H 01/19 1800 AC 01/21 PO 0601 Last 24 Hrs of Lab/Stephon Results Last 24 Hrs of Labs/Mics: Laboratory Tests 01/21/18 0758: Anion Gap 13, Estimated GFR 17 L, BUN/Creatinine Ratio 16.5 Assessment/Plan Assessment: 87 year old male with past medical history significant for hypertension, hyperlipidemia, severa aortic stenosis, abdominal aortic aneurysm repair, hypothyroidism, BPH, GERD, and CKD stage IV presents after a mechanical fall with right sided pelvic fractures and developed a fever over the weekend. Fall with pelvic fractures and right hand fractures: Analgesia-discharge on tramadol, tylenol, and baclofen, and bowel regimen x-ray of neck negative for fractures, baclofen for neck pain Avoid NSAIDS because of CKD Weight bearing as tolerated Right thumb pica splint Outpatient orthopedics follow up Hypertension: Blood pressure 130s Continue aspirin, plavix, metoprolol, atorvastatin, norvasc, and nitropatch 0.4 Severe aortic stenosis: Avoid hypotension Echo 10/2017 severe ANDERS 0.8 mean gradient 43, mild LA dilatation, LVEF wnl, mild LVH Was previously on HCTZ/ACEi, stopped for orthostatic hypotension on prior admission CKD Stage IV: Stable, avoid nephrotoxic agents GERD: Continue PO PPI BPH: Continue flomax Hypothyroidism: Continue synthroid 100mcg daily History of nephrolithiasis: Continue allopurinol 150mg Fever with dysuria: Urinalysis calcium oxalate crystals and blood, no evidence of infection Urine culture negative, no urinary retention Remained afebrile off antibiotics Needs barrier cream for gluteal cleft "kissing" ulceration Regular diet with 2g sodium restriction DVT ppx-heparin sc DNR/DNI Discharge to [facility] today Problem List: 1. Fall 2. Pelvic fracture 3. Buttock wound Pain Ratin Pain Location: neck Pain Goal: Pain 4 or less Pain Plan: prn Tomorrow's Labs & Rationales: none, discharge
[2018-01-21] MEDS ORDERED: TRAMADOL HCL50 M1 PO (12:57)
[2018-01-21] MEDS ORDERED: MIRALAX17 G1 PO (12:59)
[2018-01-21] MEDS ORDERED: BACLOFEN10 M1 PO (12:59)
[2018-01-21] MEDS ORDERED: DOCUSATE SODIU1 EACH PO (12:59)
[2018-01-21 14:26] VITALS: BP 120/70
[2018-01-21 15:22] VITALS: BP 120/70
== END 2018-01-21 16:20 | DRG 536 ==
LOC: ERH 10:22 → ERHI 14:45 → 2NA 14:45 → ENRESERV 16:00 → ENTRNSPT 16:37 → EDTRNSPT 16:42 → EDTRNSPTSTS 16:42 → 2NA 16:47 → CMPTRNSPT 17:00 → 2NA 20:52 → ENPENDDIS 01-21 13:02 → 2NA 01-21 16:20
PROVIDERS: Internal Medicine; Physician Assistant Medical; Student in an Organized Health Care Education/Training Program
DX: S32.591A Other specified fracture of right pubis, initial encounter for closed fracture (principal); N18.4 Chronic kidney disease, stage 4 (severe); S32.301A Unspecified fracture of right ilium, initial encounter for closed fracture; S00.03XA Contusion of scalp, initial encounter; I12.9 Hypertensive chronic kidney disease with stage 1 through stage 4 chronic kidney disease, or unspecified chronic kidney disease; K21.9 Gastro-esophageal reflux disease without esophagitis; E78.5 Hyperlipidemia, unspecified; I35.0 Nonrheumatic aortic (valve) stenosis; E03.9 Hypothyroidism, unspecified; N40.0 Benign prostatic hyperplasia without lower urinary tract symptoms; W18.30XA Fall on same level, unspecified, initial encounter; Y93.K1 Activity, walking an animal; Y92.480 Sidewalk as the place of occurrence of the external cause; H91.90 Unspecified hearing loss, unspecified ear; Z87.442 Personal history of urinary calculi; Z66 Do not resuscitate; R94.31 Abnormal electrocardiogram [ECG] [EKG]; I71.4 Abdominal aortic aneurysm, without rupture; I25.10 Atherosclerotic heart disease of native coronary artery without angina pectoris; S62.184A Nondisplaced fracture of trapezoid [smaller multangular], right wrist, initial encounter for closed fracture; K59.00 Constipation, unspecified; R30.0 Dysuria; R01.1 Cardiac murmur, unspecified; I16.0 Hypertensive urgency; M54.2 Cervicalgia
CPT/HCPCS: 2NAP; 36415; 36592; 71045; 72040; 72170; 73110-RT; 73130-RT; 73502-RT; 81001; 82436; 87040; 87070; 87086; 93005; 93010; 97110-GO; 97161-GP; 97530-GO; 99291; J0131; J1644; J2405; J3490